=== PATIENT | male | born 1940 | race Caucasian/White ===

== ENCOUNTER 2021-10-21 12:37 | Outpatient (CLI) | payer MEDICARE, SELFPAY ==
[2021-10-21 13:03] LABS: Basophils Absolute Auto 0.03 K/uL (0.00-0.30); Basophils Percent Auto 0.5 % (0.0-3.0); Eosinophils Percent Auto 4.7 % (0.0-7.0); Hematocrit 40.5 % (37.0-53.0); Hemoglobin* 12.8 gm/dL (13.5-17.5); Immature Granulocytes Abs Auto 0.02 K/uL (0.00-0.30); Lymphocytes Absolute Auto 2.41 K/uL (0.90-2.90); Mean Corpuscular HGB Conc 32 gm/dL (32-36); Mean Corpuscular Hemoglobin 28 pg (26-34); Mean Corpuscular Volume 88 fL (80-100); Monocytes Percent Auto 8.5 % (0.0-11.0); Neutrophils Absolute Auto 3.04 K/uL (1.7-7.0); Platelet Count* 229 K/uL (140-440); RDW Coefficient of Variation % 17.7 % (11.5-15.5); Red Blood Count 4.63 m/uL (4.30-5.90); White Blood Count* 6.34 K/uL (4.50-11.00)
[2021-10-21 13:08] LABS: Slide Review Reflex No
[2021-10-21 13:37] LABS: C Reactive Protein* < 0.5 mg/dL (0.5-1.0)
[2021-10-21 14:00] LABS: Erythrocyte SedimentationRate* 16 mm/hr (2-15)
== END 2021-10-21 12:38 | disposition home or self-care (01) ==
LOC: LAB 12:38
PROVIDERS: PCP Family Medicine
DX: T84.50XA Infection and inflammatory reaction due to unspecified internal joint prosthesis, initial encounter (principal)
CPT/HCPCS: 36415; 85025; 85651; 86140

== ENCOUNTER 2021-11-09 09:22 | Outpatient (CLI) | payer MEDICARE, SELFPAY ==
[2021-11-09 13:36] LABS: Chloride* 105 mmol/L (96-114); Potassium* 4.6 mmol/L (3.6-5.1); Sodium* 141 mmol/L (135-149)
[2021-11-09 13:38] LABS: Alanine Aminotransferase* 17 U/L (4-50); Cholesterol* 139 mg/dL (90-199); Creatinine* 1.4 mg/dL (0.5-1.5); Estimated Glomerular Filt Rate 51 ml/min
[2021-11-09 13:39] LABS: Blood Urea Nitrogen* 26 mg/dL (7-30); Calcium* 9.6 mg/dL (8.4-10.6); Carbon Dioxide* 27 mmol/L (20-32); Glucose* 107 mg/dL (60-115); Triglycerides* 223 mg/dL (40-149)
[2021-11-09 13:40] LABS: HDL Cholesterol* 33 mg/dL (>=40); LDL Cholesterol Calculated 61 mg/dL (<100)
== END 2021-11-09 09:23 | disposition home or self-care (01) ==
PROVIDERS: PCP Family Medicine; Visit Provider Family Medicine
DX: E78.5 Hyperlipidemia, unspecified (principal)
CPT/HCPCS: 80048; 80061; 84460

== ENCOUNTER 2022-11-07 13:27 | Observation (INO) | payer MEDICARE, SELFPAY ==
[2022-11-07] VITALS (28 sets, daily range): BP systolic 136–178; BP diastolic 78–102; PULSE 57–80; RESP 16–20; TEMP 35.8–36.6; O2SAT 93–97; BMI 29.8; BMI 27.0
--- NOTE | 2022-11-07 13:43 | CRLHL7_ITS ---
For Patients: As a result of the Century Cures Act, medical imaging exams and procedure reports are released immediately into your electronic medical record. You may view this report before your referring provider. If you have questions, please contact your health care provider. INDICATION: TECHNIQUE: CT abdomen and pelvis acquired with 108 cc Isovue 370 IV contrast. COMPARISON: None. FINDINGS: Lower chest: Mild bibasilar atelectasis and/or scarring. Liver: Unremarkable. Normal in size and attenuation. No suspicious masses. Gallbladder and bile ducts: Unremarkable. No stones or inflammation. No biliary dilatation. Pancreas: Unremarkable. No mass or inflammation. Spleen: Unremarkable. Normal in size. No masses. Adrenal glands: Unremarkable. No nodules. Kidneys: Multiple cysts in the bilateral kidneys. Nonobstructing stone at the inferior pole of the right kidney (2/60), measuring approximately 3 millimeters. No hydronephrosis or hydroureter bilaterally. At the distal right ureter, there is a 5 millimeter partially obstructing stone (2/127), and a 9 millimeter stone at the right UVJ (2/134). Calcifications are identified in the left hemipelvis however location within the ureter cannot be assessed due to streak artifact from left total hip arthroplasty. There is a 4 millimeter calcification in the left hemipelvis (2/131), which is possibly within the distal left ureter. GI tract: Scattered diverticuli. Normal appendix. No bowel obstruction. Vasculature: Abdominal aorta is normal in caliber. Mesenteric arteries are patent. Calcific atherosclerosis of the aorta and iliac vessels. Lymph nodes: No lymphadenopathy. Peritoneum/Abdominal Wall: Unremarkable. No sign of mass or infiltration. No free air or significant free fluid. Pelvis: Limited evaluation due to streak artifact from left total hip arthroplasty. Coarse calcifications in the prostate are noted. Visualized portion of the bladder are unremarkable. Bones: Unremarkable for age. IMPRESSION: Ureteral stones are noted in the right distal ureter and probably within the left distal ureter as well. No significant hydronephrosis. No etiology of GI bleed is forthcoming. Visualized portions of the bladder are unremarkable. Please note that all CT scans at this facility use dose modulation, iterative reconstruction, and/or weight-based dosing when appropriate to reduce radiation dose to as low as reasonably achievable. Dictated by Gayathri Madison MD @ 11/07/2022 6:06:44 PM (Electronically Signed)
[2022-11-07 14:34] LABS: Basophils Absolute Auto 0.03 K/uL (0.00-0.30); Basophils Percent Auto 0.5 % (0.0-3.0); Eosinophils Absolute Auto 0.15 K/uL (0.00-0.50); Eosinophils Percent Auto 2.6 % (0.0-7.0); Hematocrit 46.9 % (37.0-53.0); Hemoglobin* 15.5 gm/dL (13.5-17.5); Immature Granulocytes Abs Auto 0.02 K/uL (0.00-0.30); Immature Granulocytes Pct Auto 0.3 %; Lymphocytes Absolute Auto 1.81 K/uL (0.90-2.90); Lymphocytes Percent Auto 31.2 % (20-44); Mean Corpuscular HGB Conc 33 gm/dL (32-36); Mean Corpuscular Hemoglobin 31 pg (26-34); Mean Corpuscular Volume 93 fL (80-100); Monocytes Percent Auto 8.8 % (0.0-11.0); Neutrophils Absolute Auto 3.29 K/uL (1.7-7.0); Neutrophils Percent Auto 56.6 % (42.0-72.0); Platelet Count* 187 K/uL (140-440); RDW Coefficient of Variation % 13.6 % (11.5-15.5); Red Blood Count 5.06 m/uL (4.30-5.90); White Blood Count* 5.81 K/uL (4.50-11.00)
[2022-11-07 14:37] LABS: Slide Review Reflex No
--- NOTE | 2022-11-07 14:41 | ED.GENADULT ---
HPI - General Adult General Date Seen: 11/07/22 Chief complaint: Weakness Stated complaint: Pulse 52, bleeding Time Seen by Provider: 11/07/22 13:33 Source: patient Mode of arrival: ambulatory Limitations: no limitations History of Present Illness HPI narrative: Patient is an 82-year-old male with a history of dementia current the being taken care of at home by his presenting to the emergency department for increased weakness and hematuria with bloody stool. His states he has been getting weaker and weaker and she is the sole caregiver him at home. He is having more difficulty moving around and the home with his walker and she has not believe she care of him anymore. She is concerned that he will follow hurt himself at home. She also notes she noticed blood in his urine. He does have a history of bladder cancer and his last procedure on it was 6 or 7 years ago. She also has noticed blood in his stool but states she thinks he is having hemorrhoids again. she states she is looking for long-term care at this time. Patient is appearing to answer questions appropriately and follows directions. Denies chest pain, shortness of breath, abdominal pain, headache, lightheadedness, dizziness, dysuria. His states he denies all pain but she notes he has always moaning and she does not believe that he is pain-free at this time. He is aware he is at the hospital but does not know which 1. Related Data Home Medications Medication Instructions Recorded Confirmed allopurinol 100 mg tablet 100 mg PO BID 11/07/22 11/07/22 donepezil 10 mg tablet 10 mg PO HS 11/07/22 11/07/22 doxycycline hyclate 100 mg capsule 100 mg PO HS 11/07/22 11/07/22 finasteride 5 mg tablet 5 mg PO DAILY 11/07/22 11/07/22 furosemide 20 mg tablet 20 mg PO DAILY 11/07/22 11/07/22 loratadine 10 mg tablet 10 mg PO DAILY PRN 11/07/22 11/07/22 potassium gluconate 595 mg (99 mg) 595 mg PO DAILY 11/07/22 11/07/22 tablet simvastatin 20 mg tablet 20 mg PO HS 11/07/22 11/07/22 tamsulosin 0.4 mg capsule 0.8 mg PO DAILY 10/03/23 10/03/23 triamcinolone acetonide 0.1 % 1 applic topical BID PRN 11/07/22 11/07/22 lotion Previous Rx's Medication Instructions Recorded apixaban 5 mg tablet (Eliquis) 5 mg PO BID #180 tabs 04/11/22 hydroxyzine HCl 25 mg tablet 25 mg PO QID PRN itching #60 tabs 04/11/22 potassium chloride 10 mEq 20 meq (2 x 10 mEq) PO QDAY #90 04/11/22 tablet,extended release tabs Allergies Allergy/AdvReac Type Severity Reaction Status Date / Time amlodipine Allergy Intermediate pedal edema Verified 03/15/22 12:20 Review of Systems Status of ROS: Reports: 10 or more systems reviewed and unremarkable except as noted in History and below PFSH [facility] Medical History Gout ?M10.9 - Gout, unspecified (ICD-10) History of DVT (deep vein thrombosis) ?Z86.718 - Personal history of other venous thrombosis and embolism (ICD-10) Atopic dermatitis ?L20.9 - Atopic dermatitis, unspecified (ICD-10) Hearing loss ?H91.90 - Unspecified hearing loss, unspecified ear (ICD-10) BPH (benign prostatic hyperplasia) ?N40.0 - Benign prostatic hyperplasia without lower urinary tract symptoms (ICD-10) History of COVID-19 (05/2021) ?Z86.16 - Personal history of COVID-19 (ICD-10) Abnormal echocardiogram (10/2017) ?R93.1 - Abnormal findings on diagnostic imaging of heart and coronary circulation (ICD-10) LUIS (obstructive sleep apnea) ?G47.33 - Obstructive sleep apnea (adult) (pediatric) (ICD-10) COPD (chronic obstructive pulmonary disease) ?J44.9 - Chronic obstructive pulmonary disease, unspecified (ICD-10) Hyperlipidemia ?E78.5 - Hyperlipidemia, unspecified (ICD-10) Hypertension ?I10 - Essential (primary) hypertension (ICD-10) History of bladder cancer (2005) ?Z85.51 - Personal history of malignant neoplasm of bladder (ICD-10) Dementia ?F03.90 - Unspecified dementia without behavioral disturbance (ICD-10) 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 ?Z79.01 - FPC (current) use of anticoagulants (ICD-10) Surgical History 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) ?Z96.642 - Presence of left artificial hip joint (ICD-10) History of tympanoplasty ?Z98.890 - Other specified postprocedural states (ICD-10) History of bladder surgery (2005) ?Z98.890 - Other specified postprocedural states (ICD-10) Family History Other Dementia Family history of emphysema Social History Narrative: Former smoker- quit 2011 Has 6 children- 3 biological and 3 step [facility] patient Smoking Status: Former smoker How often do you have a drink containing alcohol: never AUDIT-C Alcohol total score: 0 Non-prescribed substance use: denies use Little interest or pleasure in doing things: several days Feeling down, depressed, or hopeless: not at all Exam Narrative: Exam Narrative: Const: Well-nourished, Well-developed, in mild distress Eyes: PERRL, no conjunctival injection, and symmetrical lids HENT: Atraumatic external nose and ears. Moist mucous membranes. Neck: Symmetric, trachea midline, No thyromegaly. CVS: RRR, No murmurs or gallops. Peripheral pulses 2+ and equal in all extremities RESP: Unlabored respiratory effort. Clear to auscultation bilaterally. GI: Nontender/Nondistended, No rebound or guarding. MSK:Extremities w/o deformity, Normal Active ROM Skin: Warm, Dry. No rashes or lesions. Neuro: Normal Muscle tone, No focal neurological deficits. Psych: Awake, Alert, & Oriented to self and place. Appropriate mood and affect. Const: Vital Signs, click to edit/add: Vital Signs - 24 hr 11/07/22 13:33 11/07/22 13:43 11/07/22 14:00 Temperature 96.4 F L Pulse Rate 60 60 Pulse Rate [Pulse Oximeter] 63 Respiratory Rate 16 Blood Pressure Blood Pressure [Le ft Upper Arm] 153/78 H Pulse Oximetry 95 95 95 Oxygen Delivery Me thod Room Air 11/07/22 14:22 10/03/23 14:23 11/07/22 14:30 Temperature Pulse Rate 58 L 59 L 59 L Pulse Rate [Pulse Oximeter] Respiratory Rate Blood Pressure 158/82 H Blood Pressure [Le ft Upper Arm] Pulse Oximetry 97 96 97 Oxygen Delivery Me thod 11/07/22 14:32 11/07/22 15:00 11/07/22 15:02 Temperature Pulse Rate 57 L 58 L 75 Pulse Rate [Pulse Oximeter] Respiratory Rate Blood Pressure 150/79 H 151/102 H Blood Pressure [Le ft Upper Arm] Pulse Oximetry 96 95 94 Oxygen Delivery Me thod 11/07/22 15:30 11/07/22 15:33 11/07/22 15:34 Temperature Pulse Rate 69 65 65 Pulse Rate [Pulse Oximeter] Respiratory Rate Blood Pressure 172/80 H Blood Pressure [Le ft Upper Arm] Pulse Oximetry 96 96 97 Oxygen Delivery Me thod 11/07/22 16:00 11/07/22 16:03 11/07/22 16:04 Temperature Pulse Rate 59 L 60 61 Pulse Rate [Pulse Oximeter] Respiratory Rate Blood Pressure 149/83 H Blood Pressure [Le ft Upper Arm] Pulse Oximetry 94 94 94 Oxygen Delivery Me thod 11/07/22 16:30 11/07/22 16:33 11/07/22 16:34 Temperature Pulse Rate 59 L 62 66 Pulse Rate [Pulse Oximeter] Respiratory Rate Blood Pressure 161/84 H Blood Pressure [Le ft Upper Arm] Pulse Oximetry 95 96 93 Oxygen Delivery Me thod 11/07/22 17:00 11/07/22 17:02 11/07/22 17:30 Temperature Pulse Rate 71 66 62 Pulse Rate [Pulse Oximeter] Respiratory Rate Blood Pressure 178/92 H Blood Pressure [Le ft Upper Arm] Pulse Oximetry 96 97 94 Oxygen Delivery Me thod 11/07/22 17:32 11/07/22 18:00 11/07/22 18:03 Temperature Pulse Rate 64 68 63 Pulse Rate [Pulse Oximeter] Respiratory Rate Blood Pressure 136/85 149/83 H Blood Pressure [Le ft Upper Arm] Pulse Oximetry 95 96 96 Oxygen Delivery Me thod 11/07/22 18:32 11/07/22 19:03 Temperature Pulse Rate Pulse Rate [Pulse Oximeter] Respiratory Rate Blood Pressure 155/93 H 145/82 H Blood Pressure [Le ft Upper Arm] Pulse Oximetry Oxygen Delivery Me thod Course Vital Signs Vital signs: Initial Vital Signs Temperature 96.4 F L 11/07/22 13:33 Temperature Source Temporal Artery Scan 11/07/22 13:33 Pulse Rate 63 11/07/22 13:33 Respiratory Rate 16 11/07/22 13:33 Blood Pressure 153/78 H 11/07/22 13:33 Blood Pressure Mean 103 11/07/22 13:33 Blood Pressure Position Supine 11/07/22 13:33 Pulse Oximetry 95 11/07/22 13:33 Oxygen Delivery Method Room Air 11/07/22 13:33 Vital Signs Temperature 96.4 F L 11/07/22 13:33 Pulse Rate 63 11/07/22 13:33 Respiratory Rate 16 11/07/22 13:33 Blood Pressure 153/78 H 11/07/22 13:33 Pulse Oximetry 95 11/07/22 13:33 Oxygen Delivery Method Room Air 11/07/22 13:33 Temperature 96.4 F L 11/07/22 13:33 Pulse Rate 63 11/07/22 18:03 Respiratory Rate 16 11/07/22 13:33 Blood Pressure 145/82 H 11/07/22 19:03 Pulse Oximetry 96 11/07/22 18:03 Oxygen Delivery Method Room Air 11/07/22 13:33 Medical Decision Making MDM Narrative Medical decision making narrative: Patient is an 82-year-old male presenting to the emergency department because his says she is unable to care for him. He says he has been weaker and weaker and she is afraid he is going to fall. She is looking for skilled nursing placement. With his weakness we did do a broad workup of the patient. This included a CBC, CMP, lipase, troponin, urinalysis, COVID and flu, CT scan of the abdomen and pelvis. He is having blood in his stool and urine number looking for any abnormalities there. . Cbc and CMP showed no concerning abnormalities. COVID flu negative. Urinalysis shows blood in the urine but I do not believe he is having a UTI at this time. Troponins less than 0.012 EKG showed no concerning abnormalities. Patient's CT scan returned showing multiple nonobstructing kidney stones of varying sizes between 5 and 9 mm. There is a relatively large kidney stones please not having any pain from them right now. Again not believe he has an infected kidney stone. I spoke to the admitting hospitalist and they are aware of the kidney stones and of the size. They states since the patient has not complained of pain at this time they do not believe they are of concern and we can keep the patient here. The is agreeable to this plan. Lab Data Labs: Lab Results 11/07/22 11/07/22 11/07/22 Range/Units 14:15 14:35 17:05 WBC 5.81 (4.50-11.00) K/uL RBC 5.06 (4.30-5.90) m/uL Hgb 15.5 (13.5-17.5) gm/dL Hct 46.9 (37.0-53.0) % MCV 93 (80-100) fL MCH 31 (26-34) pg MCHC 33 (32-36) gm/dL RDW Coeff of [place] 13.6 (11.5-15.5) % Plt Count 187 (140-440) K/uL Neut % (Auto) 56.6 (42.0-72.0) % Lymph % (Auto) 31.2 (20-44) % Adams % (Auto) 8.8 (0.0-11.0) % Eos % (Auto) 2.6 (0.0-7.0) % Baso % (Auto) 0.5 (0.0-3.0) % Neut # (Auto) 3.29 (1.7-7.0) K/uL Lymph # (Auto) 1.81 (0.90-2.90) K/uL Adams # (Auto) 0.50 (0.00-0.90) K/UL Eos # (Auto) 0.15 (0.00-0.50) K/uL Baso # (Auto) 0.03 (0.00-0.30) K/uL Abs Immat Gran (auto) 0.02 (0.00-0.30) K/uL Imm/Tot Granulo (auto) 0.3 % Sodium 143 (135-149) mmol/L Potassium 4.3 (3.6-5.1) mmol/L Chloride 105 (96-114) mmol/L Carbon Dioxide 28 (20-32) mmol/L Anion Gap 10 (7-15) mEq/L BUN 25 (7-30) mg/dL Creatinine 1.5 (0.5-1.5) mg/dL Estimated Creat Clear 43.11 Estimated GFR 47 ml/min Glucose 113 (60-115) mg/dL Calcium 9.3 (8.4-10.6) mg/dL Magnesium 2.1 (1.5-2.6) mg/dL Total Bilirubin 1.1 (0.1-1.5) mg/dL AST 31 (12-35) U/L ALT 21 (4-50) U/L Alkaline Phosphatase 60 (40-150) U/L Troponin I < 0.01 L (0.01-0.04) ng/mL Total Protein 7.4 (6.0-8.3) g/dL Albumin 4.2 (3.3-5.0) g/dL Urine Color Yellow (Yellow) Urine Appearance Clear (Clear) Urine pH 6.0 (5.0-8.5) Ur Specific [place] 1.020 (1.000-1.030) Urine Protein Negative (Negative) Urine Glucose (UA) Negative (Negative) Urine Ketones Negative (Negative) Urine Blood 3+ A (Negative) Urine Nitrite Negative (Negative) Urine Bilirubin Negative (Negative) Urine Urobilinogen 0.2 (0.2-1.0) Ur Leukocyte Esterase 1+ A (Negative) Urine RBC 2-5 A (0-2) Urine WBC 10-25 A (0-5) Ur Squamous Epith Cells Few (None-Few) Urine Bacteria None (None) Stool Occult Blood (Negative) SARS-CoV-2 (PCR) Negative SARS-CoV-2 (Negative) Influenza Type A (PCR) Negative PCR FLU A (Negative) Influenza Type B (PCR) Negative PCR FLU B (Negative) POC Troponin I 0.00 L (0.01-0.04) ng/ml 11/07/22 Range/Units 17:56 WBC (4.50-11.00) K/uL RBC (4.30-5.90) m/uL Hgb (13.5-17.5) gm/dL Hct (37.0-53.0) % MCV (80-100) fL MCH (26-34) pg MCHC (32-36) gm/dL RDW Coeff of Hiwot (11.5-15.5) % Plt Count (140-440) K/uL Neut % (Auto) (42.0-72.0) % Lymph % (Auto) (20-44) % Adams % (Auto) (0.0-11.0) % Eos % (Auto) (0.0-7.0) % Baso % (Auto) (0.0-3.0) % Neut # (Auto) (1.7-7.0) K/uL Lymph # (Auto) (0.90-2.90) K/uL Adams # (Auto) (0.00-0.90) K/UL Eos # (Auto) (0.00-0.50) K/uL Baso # (Auto) (0.00-0.30) K/uL Abs Immat Gran (auto) (0.00-0.30) K/uL Imm/Tot Granulo (auto) % Sodium (135-149) mmol/L Potassium (3.6-5.1) mmol/L Chloride (96-114) mmol/L Carbon Dioxide (20-32) mmol/L Anion Gap (7-15) mEq/L BUN (7-30) mg/dL Creatinine (0.5-1.5) mg/dL Estimated Creat Clear Estimated GFR ml/min Glucose (60-115) mg/dL Calcium (8.4-10.6) mg/dL Magnesium (1.5-2.6) mg/dL Total Bilirubin (0.1-1.5) mg/dL AST (12-35) U/L ALT (4-50) U/L Alkaline Phosphatase (40-150) U/L Troponin I (0.01-0.04) ng/mL Total Protein (6.0-8.3) g/dL Albumin (3.3-5.0) g/dL Urine Color (Yellow) Urine Appearance (Clear) Urine pH (5.0-8.5) Ur Specific [place] (1.000-1.030) Urine Protein (Negative) Urine Glucose (UA) (Negative) Urine Ketones (Negative) Urine Blood (Negative) Urine Nitrite (Negative) Urine Bilirubin (Negative) Urine Urobilinogen (0.2-1.0) Ur Leukocyte Esterase (Negative) Urine RBC (0-2) Urine WBC (0-5) Ur Squamous Epith Cells (None-Few) Urine Bacteria (None) Stool Occult Blood Positive (Negative) SARS-CoV-2 (PCR) (Negative) Influenza Type A (PCR) (Negative) Influenza Type B (PCR) (Negative) POC Troponin I (0.01-0.04) ng/ml Imaging Data CT abdomen pelvis: Radiologist's impression: INDICATION: TECHNIQUE: CT abdomen and pelvis acquired with 108 cc Isovue 370 IV contrast. COMPARISON: None. FINDINGS: Lower chest: Mild bibasilar atelectasis and/or scarring. Liver: Unremarkable. Normal in size and attenuation. No suspicious masses. Gallbladder and bile ducts: Unremarkable. No stones or inflammation. No biliary dilatation. Pancreas: Unremarkable. No mass or inflammation. Spleen: Unremarkable. Normal in size. No masses. Adrenal glands: Unremarkable. No nodules. Kidneys: Multiple cysts in the bilateral kidneys. Nonobstructing stone at the inferior pole of the right kidney (2/60), measuring approximately 3 millimeters. No hydronephrosis or hydroureter bilaterally. At the distal right ureter, there is a 5 millimeter partially obstructing stone (2/127), and a 9 millimeter stone at the right UVJ (2/134). Calcifications are identified in the left hemipelvis however location within the ureter cannot be assessed due to streak artifact from left total hip arthroplasty. There is a 4 millimeter calcification in the left hemipelvis (2/131), which is possibly within the distal left ureter. GI tract: Scattered diverticuli. Normal appendix. No bowel obstruction. Vasculature: Abdominal aorta is normal in caliber. Mesenteric arteries are patent. Calcific atherosclerosis of the aorta and iliac vessels. Lymph nodes: No lymphadenopathy. Peritoneum/Abdominal Wall: Unremarkable. No sign of mass or infiltration. No free air or significant free fluid. Pelvis: Limited evaluation due to streak artifact from left total hip arthroplasty. Coarse calcifications in the prostate are noted. Visualized portion of the bladder are unremarkable. Bones: Unremarkable for age. IMPRESSION: Ureteral stones are noted in the right distal ureter and probably within the left distal ureter as well. No significant hydronephrosis. No etiology of GI bleed is forthcoming. Visualized portions of the bladder are unremarkable. Please note that all CT scans at this facility use dose modulation, iterative reconstruction, and/or weight-based dosing when appropriate to reduce radiation dose to as low as reasonably achievable. Dictated by Gayathri Madison MD @ 11/07/2022 6:06:44 PM ECG Data Attestation: I personally reviewed and interpreted this ECG as follows: Prior ECG tracings: not available for review Interpretation: Sinus rhythm with a rate of 62 beats per minute, first-degree AV block, possible left ventricular hypertrophy based on the large S wave in V1, otherwise normal intervals, normal axis, no ST or T-wave abnormalities
[2022-11-07 14:50] LABS: Chloride* 105 mmol/L (96-114)
[2022-11-07 14:51] LABS: Albumin* 4.2 g/dL (3.3-5.0); Sodium* 143 mmol/L (135-149)
[2022-11-07 14:52] LABS: Potassium* 4.3 mmol/L (3.6-5.1)
[2022-11-07 14:53] LABS: Bilirubin Total* 1.1 mg/dL (0.1-1.5)
[2022-11-07 14:54] LABS: Alanine Aminotransferase* 21 U/L (4-50); Alkaline Phosphatase* 60 U/L (40-150); Anion Gap 10 mEq/L (7-15); Aspartate Amino Transferase* 31 U/L (12-35); Blood Urea Nitrogen* 25 mg/dL (7-30); Calcium* 9.3 mg/dL (8.4-10.6); Carbon Dioxide* 28 mmol/L (20-32); Glucose* 113 mg/dL (60-115); Total Protein* 7.4 g/dL (6.0-8.3)
[2022-11-07 14:55] LABS: Magnesium* 2.1 mg/dL (1.5-2.6)
[2022-11-07 15:11] LABS: Troponin I* < 0.01 ng/mL (0.01-0.04)
[2022-11-07 15:12] LABS: PCR FLU A Negative PCR FLU A (Negative); PCR FLU B Negative PCR FLU B (Negative); SARS PCR* Negative SARS-CoV-2 (Negative)
[2022-11-07] MEDS: HALOPERIDOL 5 MG/ML INJ IV ×2 (15:33→18:54)
[2022-11-07 15:35] LABS: Creatinine* 1.5 mg/dL (0.5-1.5); Est. Creatinine Clearance* 43.11; Estimated Glomerular Filt Rate 47 ml/min
[2022-11-07 17:16] LABS: Appearance Urine Clear (Clear); Bilirubin Urine Negative (Negative); Blood Urine 3+ (Negative); Color Urine Yellow (Yellow); Glucose Urine Negative (Negative); Ketones Urine Negative (Negative); Leukocyte Esterase Urine 1+ (Negative); Nitrite Urine Negative (Negative); Protein Urine Negative (Negative); Urobilinogen Urine 0.2 (0.2-1.0)
[2022-11-07 17:25] LABS: Squamous Epithelial Cell Urine Few (None-Few)
[2022-11-07 18:02] LABS: Fecal Occult Blood* Positive (Negative)
--- NOTE | 2022-11-07 19:06 | P.IMHP_ITS ---
Hospitalist- H&P: HPI History of Present Illness Date Seen: 11/07/22 Chief complaint: Pulse 52, bleeding Narrative: Chris Sepulveda is a 82 year old male past medical history significant for hypertension, hyperlipidemia, dementia, history of DVT on chronic anticoagulation, bladder cancer 15 years ago, atopic dermatitis, BPH, LUIS is admitted to the medical floor from the ED for increasing generalized weakness. Patient is seen with his at bedside who provides most of the history. She tells me that the patient has been gradually weakening over several months. Has become more difficult to care for at home as he refuses cares that she offers or refuses to help with his ADLs. There are times where he refuses to speak to her or will yell at her for what she believes are insignificant things. She tells me there was no acute event today that prompted her bringing him to the ED other than it was just time. She has been looking into nursing homes for some time now as well and feels she can no longer care for him at home by herself. When discussing rectal bleeding, his tells me this occurs intermittently, typically related to chronic hemorrhoids. She denies any worsening or increased bleeding with stools. His stools are irregular as well, depending typically on what he eats. As for blood in his urine, this has also been chronic. He has a history of bladder cancer which was treated 15 years ago. Again, no recent increase in hematuria is reported by her. She tells me he does not complain of pain and has no previous known history of kidney stones. Nonsmoker. No alcohol use. In the ED, no acute infectious etiology was found. UC is pending. No electrol yte derangement. Kidney stones without hydronephrosis noted on CT. Patient required 2 doses of Haldol for agitation. Review of Systems Narrative: REVIEW OF SYSTEMS: Complete review of systems performed and negative unless otherwise stated in HPI or below. [facility] Medical History Gout ?M10.9 - Gout, unspecified (ICD-10) History of DVT (deep vein thrombosis) ?Z86.718 - Personal history of other venous thrombosis and embolism (ICD-10) Atopic dermatitis ?L20.9 - Atopic dermatitis, unspecified (ICD-10) Hearing loss ?H91.90 - Unspecified hearing loss, unspecified ear (ICD-10) BPH (benign prostatic hyperplasia) ?N40.0 - Benign prostatic hyperplasia without lower urinary tract symptoms (ICD-10) History of COVID-19 (05/2021) ?Z86.16 - Personal history of COVID-19 (ICD-10) Abnormal echocardiogram (10/2017) ?R93.1 - Abnormal findings on diagnostic imaging of heart and coronary circulation (ICD-10) LUIS (obstructive sleep apnea) ?G47.33 - Obstructive sleep apnea (adult) (pediatric) (ICD-10) COPD (chronic obstructive pulmonary disease) ?J44.9 - Chronic obstructive pulmonary disease, unspecified (ICD-10) Hyperlipidemia ?E78.5 - Hyperlipidemia, unspecified (ICD-10) Hypertension ?I10 - Essential (primary) hypertension (ICD-10) History of bladder cancer (2005) ?Z85.51 - Personal history of malignant neoplasm of bladder (ICD-10) Dementia ?F03.90 - Unspecified dementia without behavioral disturbance (ICD-10) 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 ?Z79.01 - 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 (ICD-10) Surgical History 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) ?Z96.642 - Presence of left artificial hip joint (ICD-10) History of tympanoplasty ?Z98.890 - Other specified postprocedural states (ICD-10) History of bladder surgery (2005) ?Z98.890 - Other specified postprocedural states (ICD-10) Family History Other Dementia Family history of emphysema Social History Narrative: Former smoker- quit 2011 Has 6 children- 3 biological and 3 step [place] patient Smoking Status: Former smoker How often do you have a drink containing alcohol: never AUDIT-C Alcohol total score: 0 Non-prescribed substance use: denies use Little interest or pleasure in doing things: several days Feeling down, depressed, or hopeless: not at all Meds Home Medications and Allergies Home Medications Medication Instructions Recorded Confirmed Type allopurinol 100 mg tablet 100 mg PO BID 11/07/22 11/07/22 History donepezil 10 mg tablet 10 mg PO HS 11/07/22 11/07/22 History doxycycline hyclate 100 mg capsule 100 mg PO HS 11/07/22 11/07/22 History finasteride 5 mg tablet 5 mg PO DAILY 11/07/22 11/07/22 History furosemide 20 mg tablet 20 mg PO DAILY 11/07/22 11/07/22 History loratadine 10 mg tablet 10 mg PO DAILY PRN 11/07/22 11/07/22 History potassium gluconate 595 mg (99 mg) 595 mg PO DAILY 11/07/22 11/07/22 History tablet simvastatin 20 mg tablet 20 mg PO HS 11/07/22 11/07/22 History tamsulosin 0.4 mg capsule 0.8 mg PO DAILY 11/07/22 11/07/22 History triamcinolone acetonide 0.1 % 1 applic topical BID PRN 11/07/22 11/07/22 History lotion Allergies Allergy/AdvReac Type Severity Reaction Status Date / Time amlodipine Allergy Intermediate pedal edema Verified 03/15/22 12:20 Exam Narrative: Exam Narrative: PHYSICAL EXAM General: Lying in bed, calm, appropriately interactive, NAD HEENT: Normocephalic, atraumatic, sclera white, EOMI, oral mucosa moist Cardiovascular: RRR, S1S2. No pitting edema Pulmonary: CTA bilaterally without rhonchi, rales, expiratory wheezes. No dyspnea Abdominal: Soft, nondistended, NTTP Neurological: Alert, oriented to self and year, cranial nerves intact, no focal findings Extremities: No gross joint deformity or swelling. AROMI. Neurovascularly intact Skin: Warm, dry. Const: Vital Signs, click to edit/add: Vital Signs - 24 hr 11/07/22 13:33 11/07/22 13:43 11/07/22 14:00 Temperature 96.4 F L Pulse Rate 60 60 Pulse Rate [Pulse Oximeter] 63 Respiratory Rate 16 Blood Pressure Blood Pressure [Le ft Upper Arm] 153/78 H Pulse Oximetry 95 95 95 Oxygen Delivery Me thod Room Air 11/07/22 14:22 11/07/22 14:23 11/07/22 14:30 Temperature Pulse Rate 58 L 59 L 59 L Pulse Rate [Pulse Oximeter] Respiratory Rate Blood Pressure 158/82 H Blood Pressure [Le ft Upper Arm] Pulse Oximetry 97 96 97 Oxygen Delivery Me od 11/07/22 14:32 11/07/22 15:00 11/07/22 15:02 Temperature Pulse Rate 57 L 58 L 75 Pulse Rate [Pulse Oximeter] Respiratory Rate Blood Pressure 150/79 H 151/102 H Blood Pressure [Le ft Upper Arm] Pulse Oximetry 96 95 [facility] 15:30 11/07/22 15:33 11/07/22 15:34 Temperature Pulse Rate 69 65 65 Pulse Rate [Pulse Oximeter] Respiratory Rate Blood Pressure 172/80 H Blood Pressure [Le ft Upper Arm] Pulse Oximetry 96 96 97 [facility] 16:00 11/07/22 16:03 11/07/22 16:04 Temperature Pulse Rate 59 L 60 61 Pulse Rate [Pulse Oximeter] Respiratory Rate Blood Pressure 149/83 H Blood Pressure [Le ft Upper Arm] Pulse Oximetry 94 94 94 [facility] 16:30 11/07/22 16:33 11/07/22 16:34 Temperature Pulse Rate 59 L 62 66 Pulse Rate [Pulse Oximeter] Respiratory Rate Blood Pressure 161/84 H Blood Pressure [Le ft Upper Arm] Pulse Oximetry 95 96 93 [facility] 17:00 11/07/22 17:02 11/07/22 17:30 Temperature Pulse Rate 71 66 62 Pulse Rate [Pulse Oximeter] Respiratory Rate Blood Pressure 178/92 H Blood Pressure [Le ft Upper Arm] Pulse Oximetry 96 97 94 [facility] 17:32 11/07/22 18:00 11/07/22 18:03 Temperature Pulse Rate 64 68 63 Pulse Rate [Pulse Oximeter] Respiratory Rate Blood Pressure 136/85 149/83 H Blood Pressure [Le ft Upper Arm] Pulse Oximetry 95 96 96 [facility] 18:32 11/07/22 19:03 Temperature Pulse Rate Pulse Rate [Pulse Oximeter] Respiratory Rate Blood Pressure 155/93 H 145/82 H Blood Pressure [Le ft Upper Arm] Pulse Oximetry Oxygen Delivery Me od Hospitalist - H&P: Result Labs Labs: Short CBC 11/07/22 Range/Units 14:15 WBC 5.81 (4.50-11.00) K/uL Hgb 15.5 (13.5-17.5) gm/dL Hct 46.9 (37.0-53.0) % Plt Count 187 (140-440) K/uL BMP 11/07/22 14:15 Sodium 143 Potassium 4.3 Chloride 105 Carbon Dioxide 28 BUN 25 Creatinine 1.5 Glucose 113 Calcium 9.3 Cardiac Enzymes 11/07/22 Range/Units 14:15 Troponin I < 0.01 L (0.01-0.04) ng/mL Liver Function 11/07/22 Range/Units 14:15 Total Bilirubin 1.1 (0.1-1.5) mg/dL AST 31 (12-35) U/L ALT 21 (4-50) U/L Alkaline Phosphatase 60 (40-150) U/L Albumin 4.2 (3.3-5.0) g/dL Urine 11/07/22 Range/Units 17:05 Urine Color Yellow (Yellow) Urine Appearance Clear (Clear) Urine pH 6.0 (5.0-8.5) Ur Specific [place] 1.020 (1.000-1.030) Urine Protein Negative (Negative) Urine Glucose (UA) Negative (Negative) Imaging CT scan - abdomen: Radiologist's impression: CT abdomen and pelvis acquired with 108 cc Isovue 370 IV contrast. COMPARISON: None. FINDINGS: Lower chest: Mild bibasilar atelectasis and/or scarring. Liver: Unremarkable. Normal in size and attenuation. No suspicious masses. Gallbladder and bile ducts: Unremarkable. No stones or inflammation. No biliary dilatation. Pancreas: Unremarkable. No mass or inflammation. Spleen: Unremarkable. Normal in size. No masses. Adrenal glands: Unremarkable. No nodules. Kidneys: Multiple cysts in the bilateral kidneys. Nonobstructing stone at the inferior pole of the right kidney (2/60), measuring approximately 3 millimeters. No hydronephrosis or hydroureter bilaterally. At the distal right ureter, there is a 5 millimeter partially obstructing stone (2/127), and a 9 millimeter stone at the right UVJ (2/134). Calcifications are identified in the left hemipelvis however location within the ureter cannot be assessed due to streak artifact from left total hip arthroplasty. There is a 4 millimeter calcification in the left hemipelvis (2/131), which is possibly within the distal left ureter. GI tract: Scattered diverticuli. Normal appendix. No bowel obstruction. Vasculature: Abdominal aorta is normal in caliber. Mesenteric arteries are patent. Calcific atherosclerosis of the aorta and iliac vessels. Lymph nodes: No lymphadenopathy. Peritoneum/Abdominal Wall: Unremarkable. No sign of mass or infiltration. No free air or significant free fluid. Pelvis: Limited evaluation due to streak artifact from left total hip arthroplasty. Coarse calcifications in the prostate are noted. Visualized portion of the bladder are unremarkable. Bones: Unremarkable for age. IMPRESSION: Ureteral stones are noted in the right distal ureter and probably within the left distal ureter as well. No significant hydronephrosis. No etiology of GI bleed is forthcoming. Visualized portions of the bladder are unremarkable. Assessment and Plan Assessment and plan (1) Weakness: Problem comment: -no apparent infectious etiology, UC pending, afebrile, vital signs stable, TSH ordered - unable to care for patient at home anymore, seeking long-term placement -PT/OT consults -Night Manager for discharge planning/placement needs Status: Acute (2) Dementia: Problem comment: -sounds like this may be worsening with increasing agitated episodes -continue home medications -required Haldol in the ED for agitation, monitor for sedation -Seroquel p.r.n., do not give if QTC >470 -sleep promotion, delirium prevention interventions -outpatient follow-up for further medication management Status: Chronic (3) Hematuria: Problem comment: -acute on chronic, history of bladder cancer -Nonobstructing stone right inferior pole, approximately 3 mm; 5 millimeter partially obstructing stone, and a 9 millimeter stone at the right UVJ; 4 millim eter calcification in the left hemipelvis which is possibly within the distal left ureter. No hydronephrosis or hydroureter bilaterally. Discussed with . -asymptomatic without pain, afebrile, vitals stable -monitor for new or worsening symptoms, otherwise recommend outpatient follow-up with Urology Status: Chronic (4) Rectal bleed: Problem comment: -acute on chronic, believed to be related to hemorrhoids -positive stool occult blood, hemoglobin stable -monitor for new or worsening symptoms Status: Chronic (5) History of DVT (deep vein thrombosis): Problem comment: -on chronic anticoagulation thus increased risk for bleed as above -continue apixaban for now Status: Chronic (6) Gout: Problem comment: -stable, continue allopurinol Status: Chronic (7) Hyperlipidemia: Problem comment: -continue statin Status: Chronic (8) Hypertension: Problem comment: -stable, per , no longer on medications secondary to hypotension, continue to monitor Status: Chronic Plan CODE: DNR/DNI as discussed with patient and VTE PPX: Apixaban Disposition: Observation, PT/OT, director social welfare for discharge planning and placement needs
[2022-11-07] MEDS: APIXABAN 5 MG TABLET PO (21:31)
[2022-11-07] MEDS: DONEPEZIL 10 MG TABLET PO (21:31)
[2022-11-07] MEDS: MELATONIN 3 MG TABLET PO (21:31)
[2022-11-07] MEDS: SODIUM CHLORIDE 0.9 % (FLUSH) 10 ML SYRINGE 5 ML IVF (21:32)
--- NOTE | 2022-11-07 23:01 | PC.NURSE ---
Admission information provided by spouse, patient is cooperative, oriented to self, others, and place. Patient incontinent of bladder. No blood noted in brief. Patient denies pain.
[2022-11-08] VITALS (10 sets, daily range): BP systolic 113–152; BP diastolic 61–92; PULSE 55–73; RESP 16–20; TEMP 35.3–36.7; O2SAT 93–95
--- NOTE | 2022-11-08 07:23 | PC.NURSE ---
Shift note [id number]: Pt is alert and oriented to self only. Pt knows he is in the hospital but doesn?t know which one or what town he is in.?Afebrile. Pt denies pain, chest pain, SOB and N/V. Pt is up SBA with walker gait belt, tolerating regular diet. Pt had two incontinent voids overnight no blood was observed.?Pt slept throughout most of night. Night uneventful.???
[2022-11-08] MEDS: SODIUM CHLORIDE 0.9 % (FLUSH) 10 ML SYRINGE 5 ML IVF ×2 (08:14→21:13)
[2022-11-08] MEDS: APIXABAN 5 MG TABLET PO (08:14)
[2022-11-08 08:51] LABS: Hematocrit 42.3 % (37.0-53.0); Hemoglobin* 14.3 gm/dL (13.5-17.5); Mean Corpuscular HGB Conc 34 gm/dL (32-36); Mean Corpuscular Hemoglobin 31 pg (26-34); Mean Corpuscular Volume 92 fL (80-100); Platelet Count* 198 K/uL (140-440); Red Blood Count 4.62 m/uL (4.30-5.90); White Blood Count* 5.97 K/uL (4.50-11.00)
[2022-11-08 08:54] LABS: Chloride* 108 mmol/L (96-114); Potassium* 4.2 mmol/L (3.6-5.1); Sodium* 140 mmol/L (135-149)
[2022-11-08 08:57] LABS: Anion Gap 7 mEq/L (7-15); Blood Urea Nitrogen* 20 mg/dL (7-30); Calcium* 9.2 mg/dL (8.4-10.6); Carbon Dioxide* 25 mmol/L (20-32); Creatinine* 1.3 mg/dL (0.5-1.5); Est. Creatinine Clearance* 51.22; Estimated Glomerular Filt Rate 56 ml/min; Glucose* 92 mg/dL (60-115); Slide Review Reflex No
--- NOTE | 2022-11-08 10:04 | P.IMPN_ITS ---
Progress Note: A&P Assessment and plan (1) Weakness: Problem details: -no apparent infectious etiology, UC pending, afebrile, vital signs stable, TSH normal - unable to care for patient at home anymore, seeking shelter placement -PT/OT consults -City Carrier Assistant for discharge planning/placement needs Status: Acute (2) Dementia: Problem details: -sounds like this may be worsening with increasing agitated episodes -continue home medications -required Haldol in the ED for agitation, monitor for sedation -Seroquel p.r.n., do not give if QTC >470 -sleep promotion, delirium prevention interventions -outpatient follow-up for further medication management Status: Chronic (3) Hematuria: Problem details: -acute on chronic, history of bladder cancer -Nonobstructing stone right inferior pole, approximately 3 mm; 5 millimeter partially obstructing stone, and a 9 millimeter stone at the right UVJ; 4 millimeter calcification in the left hemipelvis which is possibly within the distal left ureter. No hydronephrosis or hydroureter bilaterally. Discussed with . -asymptomatic without pain, afebrile, vitals stable -monitor for new or worsening symptoms, otherwise recommend outpatient follow-up with Urology Status: Chronic (4) Rectal bleed: Problem details: -acute on chronic, believed to be related to hemorrhoids -positive stool occult blood, hemoglobin stable -monitor for new or worsening symptoms Status: Chronic (5) History of DVT (deep vein thrombosis): Problem details: -on chronic anticoagulation thus increased risk for bleed as above -will hold further anticoagulation as risk outweighs benefit Status: Chronic (6) Gout: Problem details: -stable, continue allopurinol uric acid ordered Status: Chronic (7) Hyperlipidemia: Problem details: -continue statin Status: Inactive (8) Hypertension: Problem details: -stable, per , no longer on medications secondary to hypotension, continue to monitor Status: Chronic (9) BPH (benign prostatic hyperplasia): Problem details: -continue proscar Status: Chronic (10) jail (current) use of anticoagulants: Problem details: DVT L Lower Ext x2. Lifelong treatment with the Eliquis - as of 11/27 on hold secondary to hematuria/hematochezia Status: Chronic (11) LUIS (obstructive sleep apnea): Problem details: Sleep consult 09/2017; CPAP prescribed. Status: Chronic (12) Abnormal echocardiogram: Problem details: 10/2017; LVEF=60%; severely increased wall thickness. Status: Acute (13) COPD (chronic obstructive pulmonary disease): Status: Chronic (14) Hearing loss: Status: Chronic Subjective Date Seen: 11/08/22 Interval history: Daily Progress Note - Hospital Medicine Day #: 2 CC: worsening dementia; difficult home situation for spouse. h/o of hemturia and hematochezia. OVERNIGHT UPDATES FROM STAFF & MED, LAB, IMAGING UPDATES answers to [place] - ate breakfast. denies pain. reports he is still hungry Afebrile Mildly hypertensive at times, max systolic 172. Diastolic 70s and 80s. Currently 131/76. Pulse 50s Respiratory rate 16 Pulse ox 93% on room air Weight 91.8 kilos Follow-up labs this morning. CBC is unremarkable. Basic metabolic panel, completely reassuring/unrevealing. Creatinine is actually down. Troponin was undetectable yesterday. TSH is normal. Stool occult blood positive Urine culture pending CT report reviewed. Known ureteral stones without obstruction or hydronephrosis. RN: Shift note [id number]: Pt is alert and oriented to self only. Pt knows he is in the hospital but doesn?t know which one or what town he is in. Afebrile. Pt denies pain, chest pain, SOB and N/V. Pt is up SBA with walker gait belt, tolerating regular diet. Pt had two incontinent voids overnight no blood was observed. Pt slept throughout most of night. Night uneventful. Objective: eyes closed, resting comfortably. Vitals: see above Lungs: Clear. Cardiac: S1S2. Disposition/Potential discharge - Likely to need SNF/Memory Care Today I spent 50minutes seeing the patient, reviewing Expanse and EPIC notes/diagnostics, discussing the care plan with our care time that includes social work, PT/OT, pharmacy, RT, retirement and documenting my impressions and plan in the medical record. Exam Const: Vital Signs, click to edit/add: Vital Signs - 24 hr 11/07/22 13:33 11/07/22 13:43 11/07/22 14:00 Temperature 96.4 F L Pulse Rate 60 60 Pulse Rate [Pulse Oximeter] 63 Pulse Rate [orthos tatic sitting Righ t Radial] Pulse Rate [orthos tatic standing Rig ht Radial] Respiratory Rate 16 Blood Pressure Blood Pressure [Le ft Arm] Blood Pressure [Le ft Upper Arm] 153/78 H Blood Pressure [Ri ght Arm] Blood Pressure [or thostatic sitting Right Arm] Blood Pressure [or thostatic standing Right Arm] Pulse Oximetry 95 95 95 Oxygen Delivery Me thod Room Air 11/07/22 14:22 11/07/22 14:23 11/07/22 14:30 Temperature Pulse Rate 58 L 59 L 59 L Pulse Rate [Pulse Oximeter] Pulse Rate [orthos tatic sitting Righ t Radial] Pulse Rate [orthos tatic standing Rig ht Radial] Respiratory Rate Blood Pressure 158/82 H Blood Pressure [Le ft Arm] Blood Pressure [Le ft Upper Arm] Blood Pressure [Ri ght Arm] Blood Pressure [or thostatic sitting Right Arm] Blood Pressure [or thostatic standing Right Arm] Pulse Oximetry 97 96 97 Oxygen Delivery Me thod 11/07/22 14:32 11/07/22 15:00 11/07/22 15:02 Temperature Pulse Rate 57 L 58 L 75 Pulse Rate [Pulse Oximeter] Pulse Rate [orthos tatic sitting Righ t Radial] Pulse Rate [orthos tatic standing Rig ht Radial] Respiratory Rate Blood Pressure 150/79 H 151/102 H Blood Pressure [Le ft Arm] Blood Pressure [Le ft Upper Arm] Blood Pressure [Ri ght Arm] Blood Pressure [or thostatic sitting Right Arm] Blood Pressure [or thostatic standing Right Arm] Pulse Oximetry 96 95 94 Oxygen Delivery Me thod 11/07/22 15:30 11/07/22 15:33 11/07/22 15:34 Temperature Pulse Rate 69 65 65 Pulse Rate [Pulse Oximeter] Pulse Rate [orthos tatic sitting Righ t Radial] Pulse Rate [orthos tatic standing Rig ht Radial] Respiratory Rate Blood Pressure 172/80 H Blood Pressure [Le ft Arm] Blood Pressure [Le ft Upper Arm] Blood Pressure [Ri ght Arm] Blood Pressure [or thostatic sitting Right Arm] Blood Pressure [or thostatic standing Right Arm] Pulse Oximetry 96 96 97 Oxygen Delivery Me thod 11/07/22 16:00 11/07/22 16:03 11/07/22 16:04 Temperature Pulse Rate 59 L 60 61 Pulse Rate [Pulse Oximeter] Pulse Rate [orthos tatic sitting Righ t Radial] Pulse Rate [orthos tatic standing Rig ht Radial] Respiratory Rate Blood Pressure 149/83 H Blood Pressure [Le ft Arm] Blood Pressure [Le ft Upper Arm] Blood Pressure [Ri ght Arm] Blood Pressure [or thostatic sitting Right Arm] Blood Pressure [or thostatic standing Right Arm] Pulse Oximetry 94 94 94 Oxygen Delivery Me thod 11/07/22 16:30 11/07/22 16:33 11/07/22 16:34 Temperature Pulse Rate 59 L 62 66 Pulse Rate [Pulse Oximeter] Pulse Rate [orthos tatic sitting Righ t Radial] Pulse Rate [orthos tatic standing Rig ht Radial] Respiratory Rate Blood Pressure 161/84 H Blood Pressure [Le ft Arm] Blood Pressure [Le ft Upper Arm] Blood Pressure [Ri ght Arm] Blood Pressure [or thostatic sitting Right Arm] Blood Pressure [or thostatic standing Right Arm] Pulse Oximetry 95 96 93 Oxygen Delivery Me thod 11/07/22 17:00 11/07/22 17:02 11/07/22 17:30 Temperature Pulse Rate 71 66 62 Pulse Rate [Pulse Oximeter] Pulse Rate [orthos tatic sitting Righ t Radial] Pulse Rate [orthos tatic standing Rig ht Radial] Respiratory Rate Blood Pressure 178/92 H Blood Pressure [Le ft Arm] Blood Pressure [Le ft Upper Arm] Blood Pressure [Ri ght Arm] Blood Pressure [or thostatic sitting Right Arm] Blood Pressure [or thostatic standing Right Arm] Pulse Oximetry 96 97 94 Oxygen Delivery Me thod 11/07/22 17:32 11/07/22 18:00 11/07/22 18:03 Temperature Pulse Rate 64 68 63 Pulse Rate [Pulse Oximeter] Pulse Rate [orthos tatic sitting Righ t Radial] Pulse Rate [orthos tatic standing Rig ht Radial] Respiratory Rate Blood Pressure 136/85 149/83 H Blood Pressure [Le ft Arm] Blood Pressure [Le ft Upper Arm] Blood Pressure [Ri ght Arm] Blood Pressure [or thostatic sitting Right Arm] Blood Pressure [or thostatic standing Right Arm] Pulse Oximetry 95 96 96 Oxygen Delivery Me thod 11/07/22 18:32 11/07/22 19:03 11/07/22 19:09 Temperature Pulse Rate Pulse Rate [Pulse Oximeter] Pulse Rate [orthos tatic sitting Righ t Radial] Pulse Rate [orthos tatic standing Rig ht Radial] Respiratory Rate 20 Blood Pressure 155/93 H 145/82 H Blood Pressure [Le ft Arm] Blood Pressure [Le ft Upper Arm] Blood Pressure [Ri ght Arm] Blood Pressure [or thostatic sitting Right Arm] Blood Pressure [or thostatic standing Right Arm] Pulse Oximetry 97 Oxygen Delivery Me thod Room Air 11/07/22 19:09 11/07/22 19:53 11/07/22 19:53 Temperature 97.8 F 97.8 F Pulse Rate Pulse Rate [Pulse Oximeter] 80 80 Pulse Rate [orthos tatic sitting Righ t Radial] Pulse Rate [orthos tatic standing Rig ht Radial] Respiratory Rate 20 20 20 Blood Pressure Blood Pressure [Le ft Arm] 172/83 H 172/83 H Blood Pressure [Le ft Upper Arm] Blood Pressure [Ri ght Arm] Blood Pressure [or thostatic sitting Right Arm] Blood Pressure [or thostatic standing Right Arm] Pulse Oximetry 97 97 97 Oxygen Delivery Me thod Room Air Room Air Room Air 11/08/22 00:05 11/08/22 00:05 11/08/22 03:15 Temperature 97.6 F 98.0 F Pulse Rate Pulse Rate [Pulse Oximeter] 64 64 60 Pulse Rate [orthos tatic sitting Righ t Radial] Pulse Rate [orthos tatic standing Rig ht Radial] Respiratory Rate 18 18 18 Blood Pressure Blood Pressure [Le ft Arm] 140/74 H 138/72 Blood Pressure [Le ft Upper Arm] Blood Pressure [Ri ght Arm] Blood Pressure [or thostatic sitting Right Arm] Blood Pressure [or thostatic standing Right Arm] Pulse Oximetry 93 94 Oxygen Delivery Me thod Room Air Room Air 11/08/22 06:00 11/08/22 07:49 11/08/22 08:00 Temperature 98.0 F Pulse Rate Pulse Rate [Pulse Oximeter] 58 L Pulse Rate [orthos tatic sitting Righ t Radial] 59 L Pulse Rate [orthos tatic standing Rig ht Radial] 69 Respiratory Rate 20 16 Blood Pressure Blood Pressure [Le ft Arm] Blood Pressure [Le ft Upper Arm] Blood Pressure [Ri ght Arm] 132/83 Blood Pressure [or thostatic sitting Right Arm] 131/76 Blood Pressure [or thostatic standing Right Arm] 152/92 H Pulse Oximetry 93 Oxygen Delivery Me thod Room Air Labs Labs: Laboratory Results - last 24 hr 10/03/23 10/03/23 10/03/23 14:15 14:35 17:05 WBC 5.81 RBC 5.06 Hgb 15.5 Hct 46.9 MCV 93 MCH 31 MCHC 33 RDW Coeff of Hiwot 13.6 Plt Count 187 Neut % (Auto) 56.6 Lymph % (Auto) 31.2 Tyrrell % (Auto) 8.8 Eos % (Auto) 2.6 Baso % (Auto) 0.5 Neut # (Auto) 3.29 Lymph # (Auto) 1.81 [place]rell # (Auto) 0.50 Eos # (Auto) 0.15 Baso # (Auto) 0.03 Abs Immat Gran (auto) 0.02 Imm/Tot Granulo (auto) 0.3 Sodium 143 Potassium 4.3 Chloride 105 Carbon Dioxide 28 Anion Gap 10 BUN 25 Creatinine 1.5 Estimated Creat Clear 43.11 Estimated GFR 47 Glucose 113 Calcium 9.3 Magnesium 2.1 Total Bilirubin 1.1 AST 31 ALT 21 Alkaline Phosphatase 60 Troponin I < 0.01 L Total Protein 7.4 Albumin 4.2 TSH Urine Color Yellow Urine Appearance Clear Urine pH 6.0 Ur Specific [place] 1.020 Urine Protein Negative Urine Glucose (UA) Negative Urine Ketones Negative Urine Blood 3+ A Urine Nitrite Negative Urine Bilirubin Negative Urine Urobilinogen 0.2 Ur Leukocyte Esterase 1+ A Urine RBC 2-5 A Urine WBC 10-25 A Ur Squamous Epith Cells Few Urine Bacteria None Stool Occult Blood SARS-CoV-2 (PCR) Negative SARS-CoV-2 Influenza Type A (PCR) Negative PCR FLU A Influenza Type B (PCR) Negative PCR FLU B POC Troponin I 0.00 L 11/07/22 11/08/22 17:56 05:45 WBC 5.97 RBC 4.62 Hgb 14.3 Hct 42.3 MCV 92 MCH 31 MCHC 34 RDW Coeff of [place] Plt Count 198 Neut % (Auto) Lymph % (Auto) Tyrrell % (Auto) Eos % (Auto) Baso % (Auto) Neut # (Auto) Lymph # (Auto) Tyrrell # (Auto) Eos # (Auto) Baso # (Auto) Abs Immat Gran (auto) Imm/Tot Granulo (auto) Sodium 140 Potassium 4.2 Chloride 108 Carbon Dioxide 25 Anion Gap 7 BUN 20 Creatinine 1.3 Estimated Creat Clear 51.22 Estimated GFR 56 Glucose 92 Calcium 9.2 Magnesium Total Bilirubin AST ALT Alkaline Phosphatase Troponin I Total Protein Albumin TSH 3.460 Urine Color Urine Appearance Urine pH Ur Specific [place] Urine Protein Urine Glucose (UA) Urine Ketones Urine Blood Urine Nitrite Urine Bilirubin Urine Urobilinogen Ur Leukocyte Esterase Urine RBC Urine WBC Ur Squamous Epith Cells Urine Bacteria Stool Occult Blood Positive SARS-CoV-2 (PCR) Influenza Type A (PCR) Influenza Type B (PCR) POC Troponin I
[2022-11-08] MEDS: FINASTERIDE 5 MG TABLET PO (10:17)
[2022-11-08] MEDS: FUROSEMIDE 20 MG TABLET PO (10:18)
[2022-11-08] MEDS: TAMSULOSIN HCL 0.4 MG CAPSULE 0.8 MG PO (10:18)
[2022-11-08] MEDS: POTASSIUM CHLORIDE 10 MEQ CAPSULE ER 20 MEQ PO (10:26)
--- NOTE | 2022-11-08 15:07 | PC.NURSE ---
END OF SHIFT NOTE: PATIENT HAS DENIED PAIN THROUGHOUT THE SHIFT WELL DENYING N/V. PATIENT NOTED TO BE ALERT & ORIENTED TO SELF AND HOSPITAL ENVIRONMENT THOUGH NEEDING REORIENTATION TO CORRECT DATE, DAY OF THE WEEK, TIME, SEASON, ETC. PATIENT HAS SLEPT MOST OF THE SHIFT THOUGH STATES THIS IS BASELINE FOR HIM AND THAT HE SLEEPS MOST OF THE DAY EVERY OTHER DAY. PATIENT TRANSFERRING AND AMBULATING WITH ASSIST OF 1 USING FWW AND GAIT BELT. SL IV IN PLACE TO LEFT AC. SMALL AMOUNT OF BLEEDING AND BRUISING NOTED TO L AC THOUGH IV IS PATENT WHEN FLUSHED. PATIENT SEEN BY PT AND OT THIS MORNING. LUNG SOUNDS HAVE BEEN CLEAR AND BOWEL SOUNDS ACTIVE X 4 WITH LAST BM OF 11/07/22. PATIENT SEEN BY MD LARSEN. PATIENT NOTED TO BE INCONTINENT OF BLADDER AND WEARING PULL UPS DURING DAY. STAFF ENCOURAGING FLUIDS. PATIENT ATE 100% FOR BOTH BREAKFAST AND LUNCH.
--- NOTE | 2022-11-08 15:24 | PC.NURSE ---
PATIENT HAS HAD NO HEMATURIA OR BLOOD IN BRIEF NOTED THIS SHIFT. URINAL HAS BEEN OFFERED AND ENCOURAGED THOUGH PATIENT DOES NOT FEEL URGE WHEN HE HAS TO URINATE AND WHEN ASKED THIS MORNING DID NOT NOTICE HE WAS INCONTINENT OF URINE WHEN STAFF CHECKED HIS BRIEF.
--- NOTE | 2022-11-08 15:37 | PC.SOCIAL ---
Discharge planning- Per OT, pt is not appropriate for short-term rehab. Met with pt's to discuss discharge plans. Pt's is unable to physically take care of pt at home any longer. Discussed therapy recommendations. Pt's is requesting placement in SNF. Informed pt's that since there is not a skilled need for SNF they would have to private pay. Pt's informs that they do not have the money to private pay. pt's informs that she has been working on an application for [facility] LTC that she received from [facility] ([facility]). Pt's would like assistance in completing the application. Pt's lives in [place] and will bring the application in tomorrow morning at 10:00 am. Informed pt's that she will need the last three months of bank statements also. Offered to get a new application to complete today, but pt's would like to get the application that she already completed. Pt's is interested in placement in [place] or near [place]. Informed that placement would be limited with the MA application pending and pt's was understanding to this. Provided update to charge nurse/MD. Social work will follow up as needed.
--- NOTE | 2022-11-08 18:24 | PC.NURSE ---
End of Shift: Patient pleasant and cooperative, oriented to self and . Patient vitally stable, lungs clear, BS WNL, IV SL. Patient up in chair all shift, dozing on and off. Patient ate all of dinner. Patient denies pain.
[2022-11-08] MEDS: MELATONIN 3 MG TABLET PO (21:08)
[2022-11-08] MEDS: DOXYCYCLINE HYCLATE 100 MG PO (21:09)
[2022-11-08] MEDS: SIMVASTATIN 20 MG TABLET PO (21:09)
[2022-11-08] MEDS: DONEPEZIL 10 MG TABLET PO (21:09)
[2022-11-08] MEDS: allopurinoL 100 MG TABLET PO (21:10)
[2022-11-09] VITALS (8 sets, daily range): BP systolic 112–169; BP diastolic 71–85; PULSE 64–79; RESP 12–22; TEMP 36.3–36.8; O2SAT 92–95
--- NOTE | 2022-11-09 06:35 | PC.NURSE ---
Shift note: Pt has been sleeping very well tonight. Continue to be confuse and oriented to self only. No SOB, Cough and pain reported or observed. Pt has 1 incontinent urine but no blood seen. Vital signs have been stable. Ambulate with A1, walker and GB but moves slow and requires more attention. Swallow pills whole with water.
[2022-11-09] MEDS: FINASTERIDE 5 MG TABLET PO (08:42)
[2022-11-09] MEDS: FUROSEMIDE 20 MG TABLET PO (08:42)
[2022-11-09] MEDS: allopurinoL 100 MG TABLET PO ×2 (08:42→21:02)
[2022-11-09] MEDS: TAMSULOSIN HCL 0.4 MG CAPSULE 0.8 MG PO (08:42)
[2022-11-09] MEDS: SODIUM CHLORIDE 0.9 % (FLUSH) 10 ML SYRINGE 5 ML IVF ×2 (08:43→21:01)
[2022-11-09] MEDS: POTASSIUM CHLORIDE 10 MEQ CAPSULE ER 20 MEQ PO (08:43)
--- NOTE | 2022-11-09 11:50 | PM.IMPN1 ---
Progress Note: A&P Assessment and plan (1) Weakness: Problem details: -no apparent infectious etiology, UC pending, afebrile, vital signs stable, TSH normal - unable to care for patient at home anymore, seeking [facility] placement -PT/OT consults -Mental Tester for discharge planning/placement needs Status: Acute (2) Dementia: Problem details: -sounds like this may be worsening with increasing agitated episodes -continue home medications -required Haldol in the ED for agitation, monitor for sedation -Seroquel p.r.n., do not give if QTC >470 -sleep promotion, delirium prevention interventions -outpatient follow-up for further medication management Status: Chronic (3) Problem related to discharge planning: Problem details: - can no longer safely care for patient. -awaiting placement in SNF/memory care. -unsafe discharge cristina of 11/09/22 Status: Acute (4) Hematuria: Problem details: -acute on chronic, history of bladder cancer -Nonobstructing stone right inferior pole, approximately 3 mm; 5 millimeter partially obstructing stone, and a 9 millimeter stone at the right UVJ; 4 millimeter calcification in the left hemipelvis which is possibly within the distal left ureter. No hydronephrosis or hydroureter bilaterally. Discussed with . -asymptomatic without pain, afebrile, vitals stable -monitor for new or worsening symptoms, otherwise recommend outpatient follow-up with Urology Status: Chronic (5) Rectal bleed: Problem details: -acute on chronic, believed to be related to hemorrhoids -positive stool occult blood, hemoglobin stable -monitor for new or worsening symptoms Status: Chronic (6) History of DVT (deep vein thrombosis): Problem details: -on chronic anticoagulation thus increased risk for bleed as above -will hold further anticoagulation as risk outweighs benefit Status: Chronic (7) Gout: Problem details: -stable, continue allopurinol uric acid ordered Status: Chronic (8) Hyperlipidemia: Problem details: -continue statin Status: Inactive (9) Hypertension: Problem details: -stable, per , no longer on medications secondary to hypotension, continue to monitor Status: Chronic (10) BPH (benign prostatic hyperplasia): Problem details: -continue proscar Status: Chronic (11) FDC (current) use of anticoagulants: Problem details: DVT L Lower Ext x2. Lifelong treatment with the Eliquis - as of 11/27 on hold secondary to hematuria/hematochezia Status: Chronic (12) LUIS (obstructive sleep apnea): Problem details: Sleep consult 09/2017; CPAP prescribed. Status: Chronic (13) Abnormal echocardiogram: Problem details: 10/2017; LVEF=60%; severely increased wall thickness. Status: Acute (14) COPD (chronic obstructive pulmonary disease): Status: Chronic (15) Hearing loss: Status: Chronic Subjective Date Seen: 11/09/22 Interval history: Daily Progress Note - Hospital Medicine Day #: 3 CC: worsening dementia; difficult home situation for spouse. h/o of hemturia and hematochezia. OVERNIGHT UPDATES FROM STAFF & MED, LAB, IMAGING UPDATES pleasant. orientation to self only. cues needed for most activities of self care. afebrile. 112/72. pulse 76. on room air. sats 95%. No new labs or imaging. RN: Shift note: Pt has been sleeping very well tonight. Continue to be confuse and oriented to self only. No SOB, Cough and pain reported or observed. Pt has 1 incontinent urine but no blood seen. Vital signs have been stable. Ambulate with A1, walker and GB but moves slow and requires more attention. Swallow pills whole with water. Objective: eyes closed, resting comfortably. Vitals: see above Lungs: Clear. Cardiac: S1S2. Disposition/Potential discharge - Likely to need SNF/Memory Care Today I spent 50minutes seeing the patient, reviewing Expanse and EPIC notes/diagnostics, discussing the care plan with our care time that includes social work, PT/OT, pharmacy, RT, [place] [facility] and documenting my impressions and plan in the medical record. Exam Const: Vital Signs, click to edit/add: Vital Signs - 24 hr 11/08/22 15:12 11/08/22 15:12 11/08/22 19:00 Temperature 97.5 F L 97.5 F L Pulse Rate [Pulse Oximeter] 55 L 55 L 73 Respiratory Rate 16 16 16 Blood Pressure [Le ft Arm] Blood Pressure [Ri ght Arm] 113/61 125/78 Pulse Oximetry 94 94 Oxygen Delivery Me thod Room Air Room Air 11/08/22 23:00 11/08/22 23:30 11/09/22 03:00 Temperature 97.7 F Pulse Rate [Pulse Oximeter] 68 Respiratory Rate 16 16 16 Blood Pressure [Le ft Arm] Blood Pressure [Ri ght Arm] 131/76 Pulse Oximetry 95 95 Oxygen Delivery Me thod Room Air Room Air 11/09/22 06:00 11/09/22 07:42 11/09/22 07:42 Temperature 97.8 F Pulse Rate [Pulse Oximeter] 64 64 Respiratory Rate 16 12 12 Blood Pressure [Le ft Arm] 169/85 H Blood Pressure [Ri ght Arm] Pulse Oximetry 95 Oxygen Delivery Nc thod Room Air 11/09/22 11:36 Temperature 97.4 F L Pulse Rate [Pulse Oximeter] 76 Respiratory Rate 20 Blood Pressure [Le ft Arm] Blood Pressure [Ri ght Arm] 112/72 Pulse Oximetry 95 Oxygen Delivery Me thod Room Air
--- NOTE | 2022-11-09 16:08 | PC.SOCIAL ---
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 Faxed completed application with financial documents from bank to [facility]) at [phone]. Confirmed with [facility] the application was received. Pt's , Marcy, informed that pt's daughter and granddaughter are nurses at a SNF in [place] called [facility] in [place]. Pt's informs that the DON at [facility] is Caitlin Guzman. This worker will reach out to Caitlin. Phone call to the following SNF's for possible placement. 1. [facility]- Phone call to Caitlin Guzman at [phone]. Caitlin informs there are openings and she can accept MA pending. Faxed referral to [phone]. 2. [facility]- Phone call to Radha in admissions at [phone]. There are no openings in [facility] and they currently are at capacity for accepting MA pending. 3. [facility] [place]- Phone call to Maria Dolores Ascencio in admissions at [phone]. Left a voicemail checking on bed availability and if the facility can accept MA pending. 4[facility] [place]- Phone call to Faith in admissions at [phone]. Left a voicemail checking on bed availability and if the facility can accept MA pending. Social work will follow up as needed.
--- NOTE | 2022-11-09 18:00 | PC.NURSE ---
End of Shift: Patient pleasant and cooperative. Patient vitally stable, lungs clear, BS WNL, IV SL. Patient denies pain. Patient 1 assist, walker, gb. Incontinent brief changed x3. Patient tolerating regular diet.
[2022-11-09] MEDS: MELATONIN 3 MG TABLET PO (21:00)
[2022-11-09] MEDS: DONEPEZIL 10 MG TABLET PO (21:00)
[2022-11-09] MEDS: DOXYCYCLINE HYCLATE 100 MG PO (21:00)
[2022-11-09] MEDS: SIMVASTATIN 20 MG TABLET PO (21:01)
[2022-11-10] VITALS (7 sets, daily range): BP systolic 132–179; BP diastolic 65–87; PULSE 60–66; RESP 16–18; TEMP 36.3–36.8; O2SAT 95–98
--- NOTE | 2022-11-10 06:35 | PC.NURSE ---
Shift note: Pt ambulate with A1, walker and GB, however, movement is slow. Baseline dementia with occasional confusion. Incontinent, brief was changed 1x tonight, no hematuria observed. Pt is afebrile, no pain and SOB. Restful sleep initiated.
[2022-11-10] MEDS: FINASTERIDE 5 MG TABLET PO (08:41)
[2022-11-10] MEDS: POTASSIUM CHLORIDE 10 MEQ CAPSULE ER 20 MEQ PO (08:41)
[2022-11-10] MEDS: TAMSULOSIN HCL 0.4 MG CAPSULE 0.8 MG PO (08:41)
[2022-11-10] MEDS: FUROSEMIDE 20 MG TABLET PO (08:42)
[2022-11-10] MEDS: allopurinoL 100 MG TABLET PO ×2 (08:43→19:28)
[2022-11-10] MEDS: SODIUM CHLORIDE 0.9 % (FLUSH) 10 ML SYRINGE 5 ML IVF ×2 (08:43→19:30)
--- NOTE | 2022-11-10 11:24 | PM.IMPN1 ---
Progress Note: A&P Assessment and plan (1) Weakness: Problem details: -no apparent infectious etiology, UC pending, afebrile, vital signs stable, TSH normal - unable to care for patient at home anymore, seeking residential placement -PT/OT consults -Muck Farmer for discharge planning/placement needs Status: Acute (2) Dementia: Problem details: -sounds like this may be worsening with increasing agitated episodes -continue home medications -required Haldol in the ED for agitation, monitor for sedation -Seroquel p.r.n., do not give if QTC >470 -sleep promotion, delirium prevention interventions -outpatient follow-up for further medication management Status: Chronic (3) Problem related to discharge planning: Problem details: - can no longer safely care for patient. -awaiting placement in SNF/memory care. -unsafe discharge cristina of 11/09/22 Status: Acute (4) Hematuria: Problem details: -acute on chronic, history of bladder cancer -Nonobstructing stone right inferior pole, approximately 3 mm; 5 millimeter partially obstructing stone, and a 9 millimeter stone at the right UVJ; 4 millimeter calcification in the left hemipelvis which is possibly within the distal left ureter. No hydronephrosis or hydroureter bilaterally. Discussed with . -asymptomatic without pain, afebrile, vitals stable -monitor for new or worsening symptoms, otherwise recommend outpatient follow-up with Urology Status: Chronic (5) Rectal bleed: Problem details: -acute on chronic, believed to be related to hemorrhoids -positive stool occult blood, hemoglobin stable -monitor for new or worsening symptoms Status: Chronic (6) History of DVT (deep vein thrombosis): Problem details: -on chronic anticoagulation thus increased risk for bleed as above -will hold further anticoagulation as risk outweighs benefit Status: Chronic (7) Gout: Problem details: -stable, continue allopurinol uric acid ordered Status: Chronic (8) Hyperlipidemia: Problem details: -continue statin Status: Inactive (9) Hypertension: Problem details: -stable, per , no longer on medications secondary to hypotension, continue to monitor Status: Chronic (10) BPH (benign prostatic hyperplasia): Problem details: -continue proscar Status: Chronic (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 Lifelong treatment with the Eliquis - as of 11/27 on hold secondary to hematuria/hematochezia Status: Chronic (12) LUIS (obstructive sleep apnea): Problem details: Sleep consult 09/2017; CPAP prescribed. Status: Chronic (13) Abnormal echocardiogram: Problem details: 10/2017; LVEF=60%; severely increased wall thickness. Status: Acute (14) COPD (chronic obstructive pulmonary disease): Status: Chronic (15) Hearing loss: Status: Chronic Subjective Date Seen: 11/10/22 Interval history: Daily Progress Note - Hospital Medicine Day #: 4 CC: worsening dementia; difficult home situation for spouse. h/o of hemturia and hematochezia. OVERNIGHT UPDATES FROM STAFF & MED, LAB, IMAGING UPDATES pleasant. orientation to self only. cues needed for most activities of self care. afebrile. 179/80. Pulse 66. Resp is 18, unlabored. O2 sat 95% on room air.. No new labs or imaging. RN: Shift note: Pt ambulate with A1, walker and GB, however, movement is slow. Baseline dementia with occasional confusion. Incontinent, brief was changed 1x tonight, no hematuria observed. Pt is afebrile, no pain and SOB. Restful sleep initiated. Objective: eyes closed, resting comfortably. Vitals: see above Lungs: Clear. Cardiac: S1S2. Disposition/Potential discharge - Likely to need SNF/Memory Care Today I spent 50minutes seeing the patient, reviewing Expanse and EPIC notes/diagnostics, discussing the care plan with our care time that includes social work, PT/OT, pharmacy, RT, assisted and documenting my impressions and plan in the medical record. Exam Const: Vital Signs, click to edit/add: Vital Signs - 24 hr 11/09/22 11:36 11/09/22 15:17 11/09/22 15:17 Temperature 97.4 F L 98.1 F Pulse Rate [Pulse Oximeter] 76 73 73 Respiratory Rate 20 22 22 Blood Pressure [Ri ght Arm] 112/72 130/71 Pulse Oximetry 95 95 Oxygen Delivery Me thod Room Air Room Air 11/09/22 19:00 11/09/22 23:00 11/09/22 23:30 Temperature 98.3 F 98 F Pulse Rate [Pulse Oximeter] 79 66 Respiratory Rate 18 18 18 Blood Pressure [Ri ght Arm] 139/73 149/76 H Pulse Oximetry 92 95 Oxygen Delivery Me thod Room Air Room Air 11/10/22 03:00 11/10/22 06:00 11/10/22 07:00 Temperature 97.8 F Pulse Rate [Pulse Oximeter] 66 Respiratory Rate 18 18 18 Blood Pressure [Ri ght Arm] 179/80 H Pulse Oximetry 95 Oxygen Delivery Me thod Room Air Room Air
--- NOTE | 2022-11-10 16:25 | PC.SOCIAL ---
Discharge planning- [facility] and can take MA pending. Faxed referral to the [facility] at [phone]. Was informed by med/surg nursing that the [facility] did call for a nurse to nurse. Nursing informed that pt has been doing well and is cooperative and not displaying behaviors. Phone call to [facility] in [place] at [phone]. They have openings and confirmed they received fax. They can accept MA pending and are assessing. Met with pt's to provide update. Pt's is very hopeful that pt can go to [facility] in [place] as a first option. Pt's then would like either [facility] in [place] or [facility] in [place]. Discussed with pt's that the SNF's may be more limited due to pt's level of care and due to pt having MA pending. Social work will follow up as needed.
--- NOTE | 2022-11-10 18:47 | PC.NURSE ---
shift note: pt up 1/walker. pt very slow with transfers due to shuffled gait. pt appeared more tired late afternoon. Pt needing setup and observation during supper. LS dim/clr. HR reg. vss stable. pt afeb. IV patent. pt incont of bladder. bilat shins with scabbing
[2022-11-10] MEDS: DONEPEZIL 10 MG TABLET PO (19:25)
[2022-11-10] MEDS: DOXYCYCLINE HYCLATE 100 MG PO (19:25)
[2022-11-10] MEDS: SIMVASTATIN 20 MG TABLET PO (19:26)
[2022-11-10] MEDS: MELATONIN 3 MG TABLET PO (19:26)
[2022-11-11] VITALS (7 sets, daily range): BP systolic 135–1564; BP diastolic 74–79; PULSE 63–91; RESP 16–20; TEMP 36.4–36.9; O2SAT 94–95
--- NOTE | 2022-11-11 06:31 | PC.NURSE ---
End of Shift: [id number] Pt remained sleeping throughout night. RN checked on pt regularly, one set of restful night vitals, pt acknowledged RN but did not wake up enough to speak, full set of vitals at 0300. Pt did not wake up for daily weight on standing scale. Pt remained on RA throughout night, no BM or void during shift.
[2022-11-11] MEDS: FUROSEMIDE 20 MG TABLET PO (08:52)
[2022-11-11] MEDS: TAMSULOSIN HCL 0.4 MG CAPSULE 0.8 MG PO (08:52)
[2022-11-11] MEDS: POTASSIUM CHLORIDE 10 MEQ CAPSULE ER 20 MEQ PO (08:53)
[2022-11-11] MEDS: FINASTERIDE 5 MG TABLET PO (08:53)
[2022-11-11] MEDS: allopurinoL 100 MG TABLET PO ×2 (08:54→21:12)
[2022-11-11] MEDS: SODIUM CHLORIDE 0.9 % (FLUSH) 10 ML SYRINGE 5 ML IVF ×2 (08:56→21:11)
--- NOTE | 2022-11-11 09:41 | PM.IMPN1 ---
Progress Note: A&P Assessment and plan (1) Weakness: Problem details: -no apparent infectious etiology, UC pending, afebrile, vital signs stable, TSH normal - unable to care for patient at home anymore, [facility] -PT/OT consults -Night Clerk Auditor for discharge planning/placement needs Status: Acute (2) Dementia: Problem details: -progressive to near bed bound. -continue home medications -No prn's for agitation or delirium needed since ER arrival. -Seroquel p.r.n., do not give if QTC >470 -sleep promotion, delirium prevention interventions Status: Chronic (3) Problem related to discharge planning: Problem details: - can no longer safely care for patient. -awaiting placement in SNF/memory care. -unsafe discharge plan as of 11/09/22 Status: Acute (4) Hematuria: Problem details: -acute on chronic, history of bladder cancer -Nonobstructing stone right inferior pole, approximately 3 mm; 5 millimeter partially obstructing stone, and a 9 millimeter stone at the right UVJ; 4 millimeter calcification in the left hemipelvis which is possibly within the distal left ureter. No hydronephrosis or hydroureter bilaterally. Discussed with . -asymptomatic without pain, afebrile, vitals stable -monitor for new or worsening symptoms, otherwise recommend outpatient follow-up with Urology Status: Chronic (5) Rectal bleed: Problem details: -acute on chronic, believed to be related to hemorrhoids -positive stool occult blood, hemoglobin stable -monitor for new or worsening symptoms Status: Chronic (6) History of DVT (deep vein thrombosis): Problem details: -on chronic anticoagulation thus increased risk for bleed as above -will hold further anticoagulation as risk outweighs benefit Status: Chronic (7) Gout: Problem details: -stable, continue allopurinol uric acid ordered Status: Chronic (8) Hyperlipidemia: Problem details: -continue statin Status: Inactive (9) Hypertension: Problem details: -stable, per , no longer on medications secondary to hypotension, continue to monitor Status: Chronic (10) BPH (benign prostatic hyperplasia): Problem details: -continue proscar Status: Chronic (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 Lifelong treatment with the Eliquis - as of 11/27 on hold secondary to hematuria/hematochezia Status: Chronic (12) LUIS (obstructive sleep apnea): Problem details: Sleep consult 09/2017; CPAP prescribed. Status: Chronic (13) Abnormal echocardiogram: Problem details: 10/2017; LVEF=60%; severely increased wall thickness. Status: Acute (14) COPD (chronic obstructive pulmonary disease): Status: Chronic (15) Hearing loss: Status: Chronic Subjective Date Seen: 11/11/22 Interval history: Daily Progress Note - Hospital Medicine Day #: 5 CC: worsening dementia; difficult home situation for spouse. h/o of hemturia and hematochezia. OVERNIGHT UPDATES FROM STAFF & MED, LAB, IMAGING UPDATES pleasant. orientation to self only. cues needed for most activities of self care. afebrile. 179/80. Pulse 66. Resp is 18, unlabored. O2 sat 95% on room air.. No new labs or imaging. RN: Pt remained sleeping throughout night. RN checked on pt regularly, one set of restful night vitals, pt acknowledged RN but did not wake up enough to speak, full set of vitals at 0300. Pt did not wake up for daily weight on standing scale. Pt remained on RA throughout night, no BM or void during shift. Objective: eyes closed, resting comfortably. Vitals: see above Lungs: Clear. Cardiac: S1S2. Disposition/Potential discharge - Likely to need SNF/Memory Care Today I spent 50minutes seeing the patient, reviewing Expanse and EPIC notes/diagnostics, discussing the care plan with our care time that includes social work, PT/OT, pharmacy, RT, long term and documenting my impressions and plan in the medical record. Exam Const: Vital Signs, click to edit/add: Vital Signs - 24 hr 11/10/22 15:00 11/10/22 20:21 11/10/22 23:00 Temperature 97.4 F L 98 F Pulse Rate [Pulse Oximeter] 60 65 63 Respiratory Rate 16 16 16 Blood Pressure [Le ft Arm] 162/87 H 132/65 Pulse Oximetry 98 95 Oxygen Delivery Me thod Room Air Room Air 11/10/22 23:00 11/10/22 23:30 11/11/22 03:00 Temperature 98 F Pulse Rate [Pulse Oximeter] 63 63 Respiratory Rate 16 16 16 Blood Pressure [Le ft Arm] 136/78 Pulse Oximetry 95 95 Oxygen Delivery Me thod Room Air Room Air 11/11/22 06:00 11/11/22 07:40 Temperature 98.4 F Pulse Rate [Pulse Oximeter] 64 Respiratory Rate 16 16 Blood Pressure [Le ft Arm] 135/76 Pulse Oximetry 94 Oxygen Delivery Me thod Room Air
--- NOTE | 2022-11-11 18:47 | PC.NURSE ---
shift note: vss stable. pt up 1/walker. pt incont of urine. IV site intact with bruising at site. bilat shins with scabbing. upper buttock with leda skin. pt had xlg BM today.
[2022-11-11] MEDS: DONEPEZIL 10 MG TABLET PO (21:11)
[2022-11-11] MEDS: SIMVASTATIN 20 MG TABLET PO (21:11)
[2022-11-11] MEDS: MELATONIN 3 MG TABLET PO (21:11)
[2022-11-11] MEDS: DOXYCYCLINE HYCLATE 100 MG PO (21:11)
[2022-11-12] VITALS (7 sets, daily range): BP systolic 142–1564; BP diastolic 72–83; PULSE 62–76; RESP 16–20; TEMP 36.6–36.9; O2SAT 96–99
--- NOTE | 2022-11-12 06:54 | PC.NURSE ---
Shift note [id number]: Pt is alert and oriented to self only.?Afebrile. Pt denies pain, chest pain, SOB and N/V. Pt is up SBA with walker gait belt, tolerating regular diet.?Pt slept intermittently throughout night. Night uneventful.???
[2022-11-12] MEDS: TAMSULOSIN HCL 0.4 MG CAPSULE 0.8 MG PO (08:12)
[2022-11-12] MEDS: allopurinoL 100 MG TABLET PO ×2 (08:12→21:20)
[2022-11-12] MEDS: FINASTERIDE 5 MG TABLET PO (08:13)
[2022-11-12] MEDS: FUROSEMIDE 20 MG TABLET PO (08:13)
[2022-11-12] MEDS: POTASSIUM CHLORIDE 10 MEQ CAPSULE ER 20 MEQ PO (08:16)
--- NOTE | 2022-11-12 08:24 | P.IMPN_ITS ---
Progress Note: A&P Assessment and plan (1) Weakness: Problem details: -no apparent infectious etiology, UC pending, afebrile, vital signs stable, TSH normal - unable to care for patient at home anymore, seeking intermediate placement -PT/OT consults -Clinical Assoc for discharge planning/placement needs Status: Acute (2) Dementia: Problem details: -progressive to near bed bound. -continue home medications -No prn's for agitation or delirium needed since ER arrival. -Seroquel p.r.n., do not give if QTC >470 -sleep promotion, delirium prevention interventions Status: Chronic (3) Problem related to discharge planning: Problem details: - can no longer safely care for patient. -awaiting placement in SNF/memory care. -unsafe discharge plan as of 11/09/22 Status: Acute (4) Hematuria: Problem details: -acute on chronic, history of bladder cancer -Nonobstructing stone right inferior pole, approximately 3 mm; 5 millimeter partially obstructing stone, and a 9 millimeter stone at the right UVJ; 4 millimeter calcification in the left hemipelvis which is possibly within the distal left ureter. No hydronephrosis or hydroureter bilaterally. Discussed with . -asymptomatic without pain, afebrile, vitals stable -monitor for new or worsening symptoms, otherwise recommend outpatient follow-up with Urology Status: Chronic (5) Rectal bleed: Problem details: -acute on chronic, believed to be related to hemorrhoids -positive stool occult blood, hemoglobin stable -monitor for new or worsening symptoms Status: Chronic (6) History of DVT (deep vein thrombosis): Problem details: -on chronic anticoagulation thus increased risk for bleed as above -will hold further anticoagulation as risk outweighs benefit Status: Chronic (7) Gout: Problem details: -stable, continue allopurinol Status: Chronic (8) Hyperlipidemia: Problem details: -continue statin Status: Inactive (9) Hypertension: Problem details: -stable, per , no longer on medications secondary to hypotension, continue to monitor Status: Chronic (10) BPH (benign prostatic hyperplasia): Problem details: -continue proscar Status: Chronic (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 Lifelong treatment with the Eliquis - as of 11/27 on hold secondary to hematuria/hematochezia Status: Chronic (12) LUIS (obstructive sleep apnea): Problem details: Sleep consult 09/2017; CPAP prescribed. Status: Chronic (13) Abnormal echocardiogram: Problem details: 10/2017; LVEF=60%; severely increased wall thickness. Status: Acute (14) COPD (chronic obstructive pulmonary disease): Status: Chronic (15) Hearing loss: Status: Chronic Subjective Date Seen: 11/12/22 Interval history: Daily Progress Note - Hospital Medicine Day #: 6 CC: worsening dementia; difficult home situation for spouse. h/o of hemturia and hematochezia. OVERNIGHT UPDATES FROM STAFF & MED, LAB, IMAGING UPDATES pleasant. orientation to self only. more talkative today, more energy. afebrile. 147/77. Pulse 76. Resp is 18, unlabored. O2 sat 95% on room air.. No new labs or imaging. RN: Pt is alert and oriented to self only.?Afebrile. Pt denies pain, chest pain, SOB and N/V. Pt is up SBA with walker gait belt, tolerating regular diet.?Pt slept intermittently throughout night. Night uneventful.? Objective: eyes closed, resting comfortably. Vitals: see above Lungs: Clear. Cardiac: S1S2. Disposition/Potential discharge - Likely to need SNF/Memory Care Today I spent 50minutes seeing the patient, reviewing Expanse and EPIC notes/diagnostics, discussing the care plan with our care time that includes social work, PT/OT, pharmacy, RT, half-way and documenting my impressions and plan in the medical record. Exam Const: Vital Signs, click to edit/add: Vital Signs - 24 hr 11/11/22 11:00 11/11/22 16:19 11/11/22 19:00 Temperature 97.8 F 97.6 F 97.7 F Pulse Rate [Pulse Oximeter] 76 66 91 Respiratory Rate 18 16 20 Blood Pressure [Le ft Arm] 142/78 H 1564/74 H Blood Pressure [Ri ght Arm] 166/79 H Pulse Oximetry 94 95 95 Oxygen Delivery Me thod Room Air Room Air Room Air 11/11/22 23:30 11/12/22 03:15 11/12/22 05:44 Temperature Pulse Rate [Pulse Oximeter] Respiratory Rate 18 16 16 Blood Pressure [Le ft Arm] Blood Pressure [Ri ght Arm] Pulse Oximetry Oxygen Delivery Me thod 10/08/23 08:10 Temperature 97.8 F Pulse Rate [Pulse Oximeter] 76 Respiratory Rate 18 Blood Pressure [Le ft Arm] Blood Pressure [Ri ght Arm] 147/77 H Pulse Oximetry 96 Oxygen Delivery Me thod Room Air
--- NOTE | 2022-11-12 19:48 | PC.NURSE ---
shift note: vss stable. pt afeb. LS clr. pt up 1/walker. pt incont of bladder. pt tolerates regular diet. Pt pleasant and orient to self and . Upper buttock with redness.
[2022-11-12] MEDS: DOXYCYCLINE HYCLATE 100 MG PO (21:18)
[2022-11-12] MEDS: SIMVASTATIN 20 MG TABLET PO (21:19)
[2022-11-12] MEDS: DONEPEZIL 10 MG TABLET PO (21:19)
[2022-11-13] VITALS (8 sets, daily range): BP systolic 110–174; BP diastolic 65–98; PULSE 60–76; RESP 16–18; TEMP 36.5–36.7; O2SAT 94–98
--- NOTE | 2022-11-13 08:06 | PC.NURSE ---
Shift note [id number]: Pt is alert and oriented to self only. Afebrile. Pt denies pain, chest pain, SOB and N/V. Pt?s coccyx and groin area was slightly leda barrier cream was applied to groin area and barrier cream and Meplex was applied to coccyx. Pt is up SBA with walker gait belt. Pt slept throughout most of night. Night uneventful.???
[2022-11-13] MEDS: POTASSIUM CHLORIDE 10 MEQ CAPSULE ER 20 MEQ PO (08:48)
[2022-11-13] MEDS: FINASTERIDE 5 MG TABLET PO (08:48)
[2022-11-13] MEDS: TAMSULOSIN HCL 0.4 MG CAPSULE 0.8 MG PO (08:49)
[2022-11-13] MEDS: allopurinoL 100 MG TABLET PO ×2 (08:49→21:01)
[2022-11-13] MEDS: FUROSEMIDE 20 MG TABLET PO (08:49)
--- NOTE | 2022-11-13 12:57 | P.IMPN_ITS ---
Progress Note: A&P Assessment and plan (1) Weakness: Problem details: -no apparent infectious etiology - unable to care for patient at home anymore, seeking [facility] -PT/OT consulted -Sizing Machine And Drier Operator for discharge planning/placement needs Status: Acute (2) Dementia: Problem details: -progressive to near bed bound. -continue home medications -Seroquel p.r.n., do not give if QTC >470 - No prn's for agitation or delirium needed since ER arrival. -sleep promotion, delirium prevention interventions Status: Chronic (3) Problem related to discharge planning: Problem details: - can no longer safely care for patient. -awaiting placement in SNF/memory care. -unsafe discharge plan as of 11/09/22 Status: Acute (4) Hematuria: Problem details: -acute on chronic, history of bladder cancer -Nonobstructing stone right inferior pole, approximately 3 mm; 5 millimeter partially obstructing stone, and a 9 millimeter stone at the right UVJ; 4 millimeter calcification in the left hemipelvis which is possibly within the distal left ureter. No hydronephrosis or hydroureter bilaterally. Discussed with . 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 Lifelong treatment with the Eliquis - as of 11/27 on hold secondary to hematuria/hematochezia Status: Chronic (8) Gout: Problem details: -stable, continue allopurinol Status: Chronic (9) Hyperlipidemia: Problem details: -continue statin Status: Inactive (10) Hypertension: Problem details: -stable, per , no longer on medications secondary to hypotension, continue to monitor Status: Chronic (11) BPH (benign prostatic hyperplasia): Problem details: -continue proscar Status: Chronic Plan Medically stable. Awaiting placement. Time Spent With Patient Total time spent: Today I spent 45 minutes seeing the patient, reviewing Expanse and EPIC notes/diagnostics, discussing the care plan with our care time that includes social work, PT/OT, pharmacy, RT, longterm and documenting my impressions and plan in the medical record. Subjective Date Seen: 11/13/22 Interval history: Patient reports feeling fine. No complaints or concerns this morning. No events reported overnight. Medically stable, awaiting placement. Exam Narrative: Exam Narrative: PHYSICAL EXAM General: Sitting up in a chair, appropriately interactive, NAD HEENT: Normocephalic, atraumatic, sclera white, EOMI, oral mucosa moist Cardiovascular: RRR, S1S2. No pitting edema Pulmonary: CTA bilaterally without rhonchi, rales, expiratory wheezes. No dyspnea Abdominal: Soft, nondistended, NTTP Neurological: Alert, oriented to self, cranial nerves intact, no focal findings Extremities: No gross joint deformity or swelling. AROMI. Neurovascularly intact Skin: Warm, dry Const: Vital Signs, click to edit/add: Vital Signs - 24 hr 11/12/22 15:00 11/12/22 15:00 11/12/22 21:20 Temperature 97.8 F 97.8 F Pulse Rate [Pulse Oximeter] 72 72 72 Respiratory Rate 18 18 18 Blood Pressure [Le ft Arm] 1564/74 H Blood Pressure [Ri ght Arm] 142/72 H 142/72 H Pulse Oximetry 99 99 Oxygen Delivery Me thod Room Air Room Air 11/12/22 21:25 11/12/22 21:25 11/12/22 23:29 Temperature 98.4 F Pulse Rate [Pulse Oximeter] 62 62 Respiratory Rate 18 20 18 Blood Pressure [Le ft Arm] 146/83 H Blood Pressure [Ri ght Arm] Pulse Oximetry 96 Oxygen Delivery Me thod Room Air 11/13/22 03:10 11/13/22 06:00 11/13/22 07:00 Temperature Pulse Rate [Pulse Oximeter] 60 Respiratory Rate 18 16 16 Blood Pressure [Le ft Arm] Blood Pressure [Ri ght Arm] Pulse Oximetry Oxygen Delivery Me thod 11/13/22 07:00 Temperature 98.0 F Pulse Rate [Pulse Oximeter] 60 Respiratory Rate 16 Blood Pressure [Le ft Arm] Blood Pressure [Ri ght Arm] 173/98 H Pulse Oximetry 97 Oxygen Delivery Me thod Room Air
--- NOTE | 2022-11-13 16:06 | PC.SOCIAL ---
Discharge planning- Phone call to Caitlin at [facility] in [place] at [phone]. Left a voicemail regarding possible admission. Received a phone call back from Caitlin requesting updated MD progress note and nursing notes Caitlin also asked whether pt is requiring Haldol every day and questions on pt's behavior. Faxed updated MD progress and nursing notes to [phone]. Follow up phone call to Caitlin to provide requested information. Pt is not receiving Haldol and has been cooperative and pleasant per nursing notes. Caitlin informs that she will be reviewing with the team and will call this worker back with a decision. Phone call to Faith at [facility] in [place] at [phone] to request an update on possible admission. Faith informs that nursing will be reviewing today and they will call back with a decision. Caitlin informs that there were some concerns on pt's cognitive level, so another nurse pit manager was reviewing packet today. Provided update to pt's . Pt's was going to have pt's daughter that works at [employer] talk with the space sciences director. Social work will continue to follow up as needed.
--- NOTE | 2022-11-13 18:38 | PC.NURSE ---
End of shift: Pt is alert and oriented to self. VSS, Afebrile. Pt denies pain, chest pain, SOB and N/V. Patient napped a few times throughout shift but was awake most of the day. Pt?s coccyx and groin area reddened, barrier cream and Mepilex was applied to coccyx. Pt is up SBA with walker gait belt. 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 Patient pushes call light within minutes of it being answered. Large BM this AM, takes pills whole, and tolerating a reg. diet. Patient up to chair for meals, incont. throughout shift. Plan for discharge: awaiting SNF placement.
[2022-11-13] MEDS: DONEPEZIL 10 MG TABLET PO (21:00)
[2022-11-13] MEDS: MELATONIN 3 MG TABLET PO (21:01)
[2022-11-13] MEDS: SIMVASTATIN 20 MG TABLET PO (21:01)
[2022-11-13] MEDS: DOXYCYCLINE HYCLATE 100 MG PO (21:01)
[2022-11-14] VITALS (7 sets, daily range): BP systolic 113–139; BP diastolic 62–75; PULSE 53–64; RESP 16–18; TEMP 36.4–36.7; O2SAT 93–98
--- NOTE | 2022-11-14 06:45 | PC.NURSE ---
Shift note: Pt is doing well. Appeared calm and cooperate with treatment and care. Answered questions appropriately but occasional confusion. Doing well with A1, walker and GB. No pain, SOB, Cough and fever observed. Vitally stable. Patient had adequate sleep.
[2022-11-14] MEDS: POTASSIUM CHLORIDE 10 MEQ CAPSULE ER 20 MEQ PO (09:19)
[2022-11-14] MEDS: allopurinoL 100 MG TABLET PO ×2 (09:20→20:46)
[2022-11-14] MEDS: TAMSULOSIN HCL 0.4 MG CAPSULE 0.8 MG PO (09:20)
[2022-11-14] MEDS: FUROSEMIDE 20 MG TABLET PO (09:20)
[2022-11-14] MEDS: FINASTERIDE 5 MG TABLET PO (09:20)
[2022-11-14] MEDS: SODIUM CHLORIDE 0.9 % (FLUSH) 10 ML SYRINGE 5 ML IVF (09:21)
--- NOTE | 2022-11-14 14:45 | P.IMPN_ITS ---
Progress Note: A&P Assessment and plan (1) Weakness: Problem details: -no apparent infectious etiology - unable to care for patient at home anymore, seeking retirement placement -PT/OT consulted -Automatic Transmission Mechanic for discharge planning/placement needs Status: Acute (2) Dementia: Problem details: -progressive to near bed bound. -continue home medications -Seroquel p.r.n., do not give if QTC >470 - No prn's for agitation or delirium needed since ER arrival. -sleep promotion, delirium prevention interventions Status: Chronic (3) Problem related to discharge planning: Problem details: - can no longer safely care for patient. -awaiting placement in SNF/memory care. -unsafe discharge plan as of 11/09/22 Status: Acute (4) Hematuria: Problem details: -acute on chronic, history of bladder cancer -Nonobstructing stone right inferior pole, approximately 3 mm; 5 millimeter partially obstructing stone, and a 9 millimeter stone at the right UVJ; 4 millimeter calcification in the left hemipelvis which is possibly within the distal left ureter. No hydronephrosis or hydroureter bilaterally. Discussed with . 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 Lifelong treatment with the Eliquis - as of 11/27 on hold secondary to hematuria/hematochezia Status: Chronic (8) Gout: Problem details: -stable, continue allopurinol Status: Chronic (9) Hyperlipidemia: Problem details: -continue statin Status: Inactive (10) Hypertension: Problem details: -stable, per , no longer on medications secondary to hypotension, continue to monitor Status: Chronic (11) BPH (benign prostatic hyperplasia): Problem details: -continue proscar Status: Chronic Plan Medically stable. Awaiting placement Time Spent With Patient Total time spent: Total time spent caring for the patient today was 45 minutes. This includes time spent for the visit reviewing the chart, time spent during the visit, time spent after the visit and documentation and planning in coordination of care. Subjective Date Seen: 11/14/22 Interval history: Patient continues to do well. Has no complaints or concerns this morning. Tolerating orals without nausea vomiting. No nursing concerns reported. No events reported AWAITING PLACEMENT Exam Narrative: Exam Narrative: PHYSICAL EXAM General: Sitting up in chair, pleasant, NAD HEENT: Normocephalic, atraumatic, sclera white, EOMI, oral mucosa moist Cardiovascular: RRR, S1S2. No pitting edema Pulmonary: CTA bilaterally without rhonchi, rales, expiratory wheezes. No dyspnea Neurological: Alert, answering questions appropriately, cranial nerves intact, no focal findings Extremities: No gross joint deformity or swelling. AROMI. Neurovascularly intact Skin: Warm, dry. Const: Vital Signs, click to edit/add: Vital Signs - 24 hr 11/13/22 15:00 11/13/22 15:00 11/13/22 19:00 Temperature 97.7 F 97.7 F Pulse Rate [Pulse Oximeter] 67 76 66 Respiratory Rate 16 16 16 Blood Pressure [Le ft Arm] Blood Pressure [Ri ght Arm] 124/88 129/72 Pulse Oximetry 97 97 Oxygen Delivery Me thod Room Air Room Air 11/13/22 23:00 11/13/22 23:30 11/14/22 03:00 Temperature 97.9 F Pulse Rate [Pulse Oximeter] 62 Respiratory Rate 16 16 16 Blood Pressure [Le ft Arm] Blood Pressure [Ri ght Arm] 110/65 Pulse Oximetry 94 97 Oxygen Delivery Mn thod Room Air Room Air 11/14/22 06:00 11/14/22 07:00 11/14/22 07:00 Temperature 98.0 F Pulse Rate [Pulse Oximeter] 60 60 Respiratory Rate 16 16 16 Blood Pressure [Le ft Arm] 113/63 Blood Pressure [Ri ght Arm] Pulse Oximetry 98 Oxygen Delivery Mn thod Room Air 11/14/22 11:00 Temperature 98.0 F Pulse Rate [Pulse Oximeter] 64 Respiratory Rate 16 Blood Pressure [Le ft Arm] Blood Pressure [Ri ght Arm] 127/72 Pulse Oximetry 96 Oxygen Delivery Mn thod Room Air Labs Labs: Labs only as needed
--- NOTE | 2022-11-14 15:07 | PC.NURSE ---
End of shift: Pt is alert and oriented to self. VSS, Afebrile. Pt denies pain, chest pain, SOB and N/V. Patient napped a few times throughout shift but was awake most of the day. Pt?s coccyx and groin area reddened, barrier cream and Mepilex was applied to coccyx. Pt is up SBA with walker gait belt. Pt. change control coordinator light all day and cannot verbalized needs. Patient pushes call light within minutes of it being answered. Large BM this AM, takes pills whole, and tolerating a reg. diet. Patient up to chair for meals, incont. throughout shift. Plan for discharge: awaiting SNF placement.
--- NOTE | 2022-11-14 16:36 | PC.SOCIAL ---
Discharge planning- Phone call to Caitlin Guzman at [facility] in [place]. Left a voicemail inquiring on possible admission status. Received a request from [facility] [place] from Faith in admissions requesting nurses notes and updated MD progress note. Faxed requested documents to [phone]. Received a phone call from Faith in admissions at the [facility] informing that pt is accepted for tomorrow (11/15/22) and will be offered a private room/shared bathroom. Phone call to pt's to provide update. Pt's will attempt to call Caitlin at [facility] in [place] as family is hopeful for pt to go to [facility]. Pt's understands that since we have an accepting facility for tomorrow, pt will have to discharge to that facility. Pt's called back and informed that herself and the [facility] worker called via three way call to Caitlin at [facility] and received no answer, voicemail was left. Pt's is understanding of the situation and states that she is not able to take him home. Pt's informs that she can continue to work with [facility], once pt is at the [facility]. Pt's will provide transportation to [facility] in [place] at 11:00 am tomorrow. Provided update to charge nurse and to Faith at the [facility]. Faxed pt's MA application copy to Faith at the [facility] for their records to [phone]. Social work will follow up as needed.
[2022-11-14] MEDS: MELATONIN 3 MG TABLET PO (20:44)
[2022-11-14] MEDS: DONEPEZIL 10 MG TABLET PO (20:44)
[2022-11-14] MEDS: SIMVASTATIN 20 MG TABLET PO (20:45)
[2022-11-14] MEDS: DOXYCYCLINE HYCLATE 100 MG PO (20:45)
--- NOTE | 2022-11-14 23:47 | PC.NURSE ---
Shift [id number]- Patient is pleasant and cooperative throughout shift. Denies pain. He is incontinent, brief changes/ pericares provided. Appetite intact. Up with walker, gait belt and assist of 1.
[2022-11-15 02:50] VITALS: RESP 16
[2022-11-15 06:00] VITALS: RESP 18
--- NOTE | 2022-11-15 07:46 | PC.NURSE ---
Shift note [id number]: Pt is alert and oriented to self only. Afebrile. Pt denies pain, chest pain, SOB and N/V. Pt?s coccyx Meplex dressing was changed and is CDI. Pt is up SBA with walker gait belt. Pt slept throughout most of night. Night uneventful.???
[2022-11-15 07:55] VITALS: BP 132/61; PULSE 55; RESP 16; TEMP 36.4; O2SAT 95
[2022-11-15] MEDS: allopurinoL 100 MG TABLET PO (09:20)
[2022-11-15] MEDS: FINASTERIDE 5 MG TABLET PO (09:20)
[2022-11-15] MEDS: FUROSEMIDE 20 MG TABLET PO (09:21)
[2022-11-15] MEDS: TAMSULOSIN HCL 0.4 MG CAPSULE 0.8 MG PO (09:21)
[2022-11-15] MEDS: POTASSIUM CHLORIDE 10 MEQ CAPSULE ER 20 MEQ PO (09:21)
--- NOTE | 2022-11-15 10:56 | PC.NURSE ---
PATIENT DISCHARGED WITH [facility] IN [place] AT 1040 TODAY WITH TRANSPORTATION PROVIDED BY . DISCHARGE PAPERWORK GIVEN TO AND BRIEF WAS CHANGED JUST PRIOR TO DISCHARGE. PATIENT HAD NO C/O PAIN PRIOR TO DISCHARGE.
--- NOTE | 2022-11-15 11:09 | PC.SOCIAL ---
Addendum entered by RAMIREZ Charlton 11/15/22 11:14: Correction on PAS confirmation# [id number]. Original Note: Discharge planning- Received a phone call from Caitlin Guzman at [facility] in [place] at [phone]. [facility] is accepting pt for admission for today in a semi-private room. Phone call to pt's to provide an update. Pt's would like pt to go to [place] due to having his daughters all living in [place]. Informed that the room would be shared and pt's informs that is not an issue. Provided update to charge nurse along with nurse to nurse phone number, fax number, and pharmacy ([facility]). Phone call to Caitlin Guzman at [facility] to provide an update. Pt will discharge at 11:00 am and will transport pt to the facility. Completed preadmission screening. Confirmation #[id number]. Phone call to Faith at the [facility] to provide an update on pt not needing placement with their facility. Social work will follow up as needed.
--- NOTE | 2022-11-15 14:48 | PM.DS1 ---
DS: Providers Provider Date Seen: 11/15/22 Date of admission: 11/14/22 10:17 Primary care physician: Ronald Deleon MD Admitting Clinician: Helena Lugo MD Consults: 11/07/22 19:09 Consult to Occupational Therapy [CONS] Routine Comment: Reason(s) for OT Consult:: Evaluate and Treat Any Restrictions?:: No Restrictions Consult to Physical Therapy [CONS] Routine Comment: Reason(s) for PT Consult:: Evaluate and Treat Any Restrictions?:: No Restrictions Consult to Yeast Tender [CONS] Routine Comment: Reason for Consult:: Social Service Consult 11/07/22 20:19 Consult to Physical Therapy [CONS] Routine Comment: Reason(s) for PT Consult:: Balance Assessment Any Restrictions?:: No Restrictions Attending Physician on discharge: Funmi Wise [facility], [facility] Date of Discharge: 11/15/22 DS: Diagnosis Discharge Diagnosis (1) Weakness: Status: Acute Problem details: -no apparent infectious etiology - unable to care for patient at home anymore, seeking usp placement -PT/OT consulted -Yeast Tender assisted in finding placement at [facility] in [place] (2) Rectal bleed: Status: Chronic Problem details: -acute on chronic, believed to be related to hemorrhoids -positive stool occult blood, hemoglobin stable -no further episodes, outpatient follow-up is needed (3) Hematuria: Status: Chronic Problem details: -acute on chronic, history of bladder cancer -Nonobstructing stone right inferior pole, approximately 3 mm; 5 millimeter partially obstructing stone, and a 9 millimeter stone at the right UVJ; 4 millimeter calcification in the left hemipelvis which is possibly within the distal left ureter. No hydronephrosis or hydroureter bilaterally. Discussed with . 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 Lifelong treatment with the Eliquis -anticoagulation held during hospital stay considering risks outweighs benefits secondary to hematuria/hematochezia -follow-up with PCP for further management options (5) Dementia: Status: Chronic Problem details: -progressive to near bed bound. -continue home medications -sleep promotion, delirium prevention interventions -ongoing outpatient management with PCP DS: Summary Hospital Course Hospital Course: [age] year old male past medical history significant for DVT on chronic anticoagulation, dementia, rectal bleed, hematuria, gout, BPH, hearing loss was admitted to the medical floor secondary to increasing weakness, failure to thrive, family unable to care for him in the home. Course of care and details as noted above. Remainder of chronic medical comorbidities were monitored and managed with home medications. Status at Discharge Overall status at discharge: patient is not back to baseline Time Spent with Patient Time attestation: Total time spent providing and/or coordinating discharge services: Time spent: Greater than 30 minutes Exam Narrative: Exam Narrative: PHYSICAL EXAM General: Pleasant, NAD HEENT: Normocephalic, atraumatic, sclera white, EOMI, oral mucosa moist Cardiovascular: RRR, S1S2. No pitting edema Pulmonary: CTA bilaterally without rhonchi, rales, expiratory wheezes. No dyspnea Neurological: Alert, answering questions appropriately, cranial nerves intact, no focal findings Extremities: No gross joint deformity or swelling. AROMI. Neurovascularly intact Skin: Warm, dry. Const: Vital Signs, click to edit/add: Vital Signs - 24 hr 11/14/22 15:10 11/14/22 19:05 11/14/22 23:55 Temperature 97.5 F L 98.1 F Pulse Rate [Pulse Oximeter] 60 63 53 L Respiratory Rate 18 18 18 Blood Pressure [Le ft Arm] Blood Pressure [Ri ght Arm] 122/74 139/75 Pulse Oximetry 93 95 Oxygen Delivery Me thod Room Air Room Air 11/14/22 23:55 11/15/22 02:50 11/15/22 02:50 Temperature 97.6 F Pulse Rate [Pulse Oximeter] 53 L Respiratory Rate 18 16 16 Blood Pressure [Le ft Arm] Blood Pressure [Ri ght Arm] 114/62 Pulse Oximetry 95 Oxygen Delivery Me thod Room Air 11/15/22 06:00 11/15/22 07:55 Temperature 97.6 F Pulse Rate [Pulse Oximeter] 55 L Respiratory Rate 18 16 Blood Pressure [Le ft Arm] 132/61 Blood Pressure [Ri ght Arm] Pulse Oximetry 95 Oxygen Delivery Me thod Room Air Discharge Plan Discharge Disposition: [facility] Date of Admission: 11/14/22 10:17 Attending Provider on Discharge: Funmi Wise Primary Care Provider: Ronald Deleon Discharge Medications: Continued loratadine 10 mg tablet 10 mg PO DAILY PRN potassium gluconate 595 mg (99 mg) tablet 595 mg PO DAILY doxycycline hyclate 100 mg capsule 100 mg PO HS donepezil 10 mg tablet 10 mg PO HS allopurinol 100 mg tablet 100 mg PO BID tamsulosin 0.4 mg capsule 0.8 mg PO DAILY simvastatin 20 mg tablet 20 mg PO HS furosemide 20 mg tablet 20 mg PO DAILY triamcinolone acetonide 0.1 % lotion 1 applic topical BID PRN finasteride 5 mg tablet 5 mg PO DAILY Eliquis 5 mg tablet 5 mg PO BID Qty: 180 3RF Discontinued hydroxyzine HCl 25 mg tablet 25 mg PO QID PRN (Reason: itching) Qty: 60 0RF potassium chloride 10 mEq tablet extended release 20 meq PO QDAY Qty: 90 3RF Discharge Orders: Discharge Order (Routine); Ordered 11/15/22 Ordered By: Funmi Wise Activity Level: Activity as Tolerated Discharge Diet: Regular Follow Up Appointments: Ronald Deleon MD [Primary Care Provider] - 11/22/22 (Post hospital follow up) Admit to: SNF Discharge Potential: Fair Length of Stay: <30 days Can use facility standing orders?: Yes Code Status: DNR/DNI Rehab Potential: Fair Therapy: Physical Therapy and Occupational Therapy Therapy Orders: Evaluate and Treat Oxygen: No Orders are good >30 days: Yes Signature: SERGEI Mendez, PA-C [facility]
== END 2022-11-15 10:25 ==
LOC: ED 13:50 → MEDSURG 19:25
PROVIDERS: Physician Assistant; Admitting Provider Family Medicine; Emergency Provider Student in an Organized Health Care Education/Training Program; PCP Family Medicine; Visit Provider Family Medicine
DX: R53.1 Weakness (principal); F03.90 Unspecified dementia, unspecified severity, without behavioral disturbance, psychotic disturbance, mood disturbance, and anxiety; R31.9 Hematuria, unspecified; K62.5 Hemorrhage of anus and rectum; Z86.718 Personal history of other venous thrombosis and embolism; M10.9 Gout, unspecified; E78.5 Hyperlipidemia, unspecified; I10 Essential (primary) hypertension; N40.0 Benign prostatic hyperplasia without lower urinary tract symptoms; Z79.01 Long term (current) use of anticoagulants; G47.33 Obstructive sleep apnea (adult) (pediatric); R93.1 Abnormal findings on diagnostic imaging of heart and coronary circulation; J44.9 Chronic obstructive pulmonary disease, unspecified; H91.90 Unspecified hearing loss, unspecified ear; Z02.9 Encounter for administrative examinations, unspecified
CPT/HCPCS: 36415; 74177; 80048; 80053; 81001; 82270; 83735; 84443; 84484; 84550; 85025; 85027; 87086; 87631; 93005; 96372; 97116; 97162; 97165; 97530; 99283; 99285; A9270; G0378; J1630; Q9967